=== PATIENT | female | born 1970 | race Caucasian/White ===

== ENCOUNTER 2025-03-16 16:16 | Inpatient (IN) ==
--- OUTSIDE RECORDS SUMMARY | 2025-03-16 16:24 | External Medical Summary | Summary of Care ---
Author Name Unknown Organization [facility] Address [address] [place] [address] Phone [phone] Care Team Providers Care Monorail Helper Name Role Phone Guadalupe Adams PA-C Primary Care Provider [phone] Reason for Visit * Reason Onset Date Comments Advice 03/14/2025 Encounter Details Date Type Department Care Team (Late st Contact Info) Description 03/14/2025 Telephone General Surgery, [facility] 132 [facility] [place] [address] Services, Scheduling [address] [place] [address] Advice Allergies No known active allergiesdocumented as of this encounter (statuses as of 03/14/2025) Medications ASPIRIN LOW DOSE 81 MG PO TABS 1 TABLET DAILY 1 Tab 0 3 Active ZYRTEC 10 MG PO CHEW One pill by mouth once a day for allergies 30 Tab 11 3 Active OMEGA-3 FISH OIL 1000 MG PO CAPS Take one capsule by mouth twice a day 1 Cap 0 3 Active [facility]S PROBIOTIC PO CAPS one tab a day 1 Cap 0 3 Active Esomeprazole Magnesium (NEXIUM) 40 MG CPDR Take 1 Cap by mouth daily. 180 Cap 1 9 Active Fluticasone Propionate 50 MCG/ACT Nasal Suspension (Flonase)Indicati ons:Seasonal allergies USE 2 SPRAYS IN EACH NOSTRIL DAILY 48 g 3 1 Active Vitamin C 500 MG Oral Tablet (Ascorbic Acid) Take 1 Tablet by mouth in the morning. Active Iron (Ferrous Sulfate) 325 (65 Fe) MG Oral Tablet Take 65 mg by mouth every other day. Active Clopidogrel Bisulfate 75 MG Oral Tablet (pLAVix)Indicatio ns:Hyperlipidemia with target LDL less than 70,HTN, goal below 130/80,Coronary artery disease involving [place] coronary artery of [place] heart without angina pectoris TAKE 1 TABLET IN THE MORNING 90 Tablet 3 4 Active Metoprolol Succinate ER 25 MG Oral Tablet Extended Release 24 Hour (toPROL XL)Indications:HT N, goal below 130/80 TAKE 1 TABLET IN THE MORNING 90 Tablet 3 4 Active Cyclobenzaprine HCl 10 MG Oral Tablet (Flexeril)Indicat ions:Myofascial pain syndrome of thoracic spine Take 1 Tablet by mouth at bedtime as needed for Muscle spasms. 30 Tablet 1 4 Active Triamcinolone Acetonide 0.1 % External Cream (Aristocort)Indic ations:Lichen sclerosus Apply pea sized amount topically to vaginal area once daily 80 g 3 4 Active Albuterol Sulfate HFA 108 (90 Base) MCG/ACT Inhalation Aerosol SolutionIndicatio ns:Asthma, mild Use 2 puffs every 4 hours as needed for wheezing 18 g 3 4 Active Clobetasol Propionate 0.05 % External Cream (Temovate)Indicat ions:Lichen sclerosus Apply liberally to vulva three times a week 15 g 2 4 Active Montelukast Sodium 10 MG Oral Tablet (Singulair)Indica tions:Chronic rhinitis TAKE 1 TABLET IN THE MORNING 90 Tablet 3 4 Active Arnuity Ellipta 200 MCG/ACT Inhalation Aerosol Powder Breath Activated (fluticasone Furoate)Indicatio ns:Mild persistent asthma without complication Inhale 1 Puff by mouth daily. 30 Each 5 5 Active Isosorbide Mononitrate ER 30 MG Oral Tablet Extended Release 24 Hour (Imdur) Take 1 Tablet by mouth in the morning. Active Lisinopril 10 MG Oral Tablet (Prinivil)Indicat ions:HTN, goal below 130/80 TAKE 1 TABLET IN THE MORNING 90 Tablet 1 5 Active Linzess 72 MCG Oral Capsule (linaCLOtide)Bree cations:Other constipation Take 1 Capsule by mouth daily before breakfast. 90 Capsule 1 5 Active CPAP every night at bedtime. Active Atorvastatin Calcium 80 MG Oral Tablet (Lipitor)Indicati ons:Dyslipidemia, goal LDL below 100 TAKE 1 TABLET IN THE MORNING 90 Tablet 3 5 Active documented as of this encounter (statuses as of 03/14/2025) Active Problems Problem Noted Date Diagnosed Date Iron deficiency anemia 03/19/2024 ANDRÉS on CPAP 01/23/2024 Coronary artery disease invo lving [place] coronary artery of [place] heart without angina pectoris 09/14/2022 Ectopic atrial rhythm 07/23/2022 ANDRÉS (obstructive sleep apnea) 07/23/2022 HTN, goal below 130/80 07/23/2022 History of IBS 05/19/2022 Former smoker 05/19/2022 FH myocardial infarction male first degree age k nown 05/19/2022 Hyperlipidemia with target LDL less than 70 04/22 Allergic rhinitis 07/07/2018 Hypertrophy of both inferior nasal turbinates Dyslipidemia 03/29/2018 Body mass index 37.0-37.9, adult 04/13/2016 Overview (04/13/2016): bmi= 37.49 04/13/16 H/O: hysterectomy 02/26/2014 Asthma, mild Lichen sclerosus Seasonal allergies documented as of this encounter (statuses as of 03/14/2025) Resolved Problems Problem Noted Date Diagnosed Date Resolved Date Prediabetes 01/23/2024 03/01/2024 documented as of this encounter (statuses as of 03/14/2025) Immunizations Name Administration Dates Next Due Pneumococcal Conjugate Vacci ne, 20-valent ([id number]) 01/23/2024 Pneumococcal Polysaccharide PPV23 (Pneumovax) 09/02/2015 Seasonal Influenza Vac., MDV , IM, 0.5 mL (Fluzone) 10/03/2013 Seasonal Influenza, PF, 6 M & above, IM , (FluLaval or Fluzone) 09/20/2017 Seasonal Influenza, QUAD, wi th Preserv, 6 mons & Above, 0.5 mL, IM 08/16/2019 Seasonal Influenza, Quadriva lent, No Preserve, IM 08/15/2019,08/30/2018,09/04/2016,09/02 TD - Tetanus/Diptheria (ADULT) 09/09/2010,1999 TDAP (age 10 and older)(Boostrix) 05/16/2013 documented as of this encounter Social History Tobacco Use Types Packs/Day Years Used Date Smoking Tobacco: Former Cigarettes 2007 Passive Smoke Exposure: Past Smokeless Tobacco: Never Alcohol Use Standard Drinks/Week Comments Yes 0 (1 standard drink = 0.6 oz pur e alcohol) Occ PHQ-2 Answer Date Recorded PHQ Adult Total Score 0 01/28/2023 Hunger Vital Sign Answer Date Recorded Within the past 12 months, y ou worried that your food would run out before you got the money to buy more. Never true 12/15/19 Within the past 12 months, t he food you bought just didn't last and you didn't have money to get more. Never true 12/15/2024 Childcare Answer Date Recorded Do you feel overwhelmed with taking care of a child, family member or friend? No 12/15/2024 Does your family need help f inding childcare? (Household - for ages 0-17 years) Not on file 12/15/2024 Clothing Answer Date Recorded Have you been unable to get clothing when it was really needed? No 12/15/2024 Is your family able to get c lothes or diapers when needed? (Household - for ages 0-17 years) Not on file 12/15/2024 Personal Safety Answer Date Recorded Do you feel unsafe or have concerns for your saf ety? No 12/15/2024 Do you have concerns for you r family's safety? (Household - for ages 0-17 years) Not on file 12/15/2024 Utilities Answer Date Recorded Do you have trouble paying y our heating, water, or electric bill? No 12/15/2024 Is your family able to pay t he heat, water, or electric bill? (Household - for ages 0-17 years) Not on file 12/15/2024 Does your family have access to good internet? (Household - for ages 0-17 years) Not on file 12/15/2024 Employment Status Answer Date Recorded Are you unemployed or without regular income? No 12/15/2024 Does the household have a re gular source of income? (Household - for ages 0-17 years) Not on file 12/15/2024 Social Connections Answer Date Recorded How often do you feel lonely or isolated from th ose around you? Rarely 12/15/2024 Financial Resource Strain Answer Date R ecorded Do you have any trouble payi ng for your medications, or do you think you might in the future? No 12/15/2024 Does your family have troubl e paying for medicine? (Household - for ages 0-17 years) Not on file 12/15/2024 Transportation Needs Answer Date Record ed Do you have trouble getting a ride to medical visits or work? (Adult - for ages 18 years and over) Not on file 12/15/2024 Does your family have a hard time getting a ride to doctors visits? (Household - for ages 0-17 years) Not on file 12/15/2024 Has lack of transportation k ept you from medical appointments, meetings, work, or from getting things needed for daily living? Check all that apply. No 12/15/2024 Do you (or your family) have trouble finding or paying for a ride (transportation)? (Household - for ages 0-17 years) Not on file 12/15/2024 Housing Stability Answer Date Recorded Do you currently live in a s helter or have no steady place to sleep at night? No 12/15/2024 Do you think you are at risk of becoming homeless? (Adult - for ages 18 years and over) Not on file 12/15/2024 Does your family worry about paying for your home or becoming homeless? (Household - for ages 0-17 years) Not on file 0 12/15/2024 Are you homeless or worried that you might be in the future? No 12/15/2024 Are you (or your family) mahogany eless or worried that you might be in the future? (Household - for ages 0-17 years) Not on file Food Insecurity Answer Date Recorded Do you need food for this week? No 12/15/2024 Are you able to get enough f ood for your family? (Household - for ages 0-17 years) Not on file 12/15/2024 Does your family need food t his week? (Household - for ages 0-17 years) Not on file 12/15/2024 Do you always have enough fo od for your family? (Household - for ages 0-17 years) Not on file 12/15/2024 Food Insecurity Answer Date Recorded Within the past 12 months, y ou worried that your food would run out before you got the money to buy more. Never true 12/15/19 25 Within the past 12 months, t he food you bought just didn't last and you didn't have money to get more. Never true 12/15/2024 Do you need food for this week? No 12/15/2024 Comments No Sex and Gender Information Value Date Recorded Sex Assigned at Female 07/10/2019 2:46 PM EDT Legal Sex Female 9:29 AM EST Gender Identity Female 07/10/2019 2:46 PM EDT Sexual Orientation Straight 07/10/2019 2: 46 PM EDT documented as of this encounter Miscellaneous Notes * Telephone Encounter - Manda Mitchell Ob/Or, ANDRÉS - 03/14/2025 8:06 AM EDT Becky is calling wanting to know since she finished her percocet and when she can start taking tylenol Thank you manda documented in this encounter Plan of Treatment Upcoming Encounters Date Type Department Care Team (Late st Contact Info) Description 03/18/2025 11:30 AM EDT Imaging Radiology [facility] 1st [facility] [address] [place] [phone] 04/03/2025 11:30 AM EDT Office Visit General Surgery, [facility] [address] [place] [phone] Benjamin Holman MD [address] [place] [address] 04/17/2025 2:00 PM EDT Scheduled Telephone Interventional Pain Center [facility] [address] [place] [phone] Ignacio, Nurse Phone Call Interventional Pain [facility] [address] [place] [phone] 05/09/2025 9:00 AM EDT Laboratory Laboratory, [address] [place] [address] [facility] [address] [place] [address] 05/16/2025 11:20 AM EDT Office Visit Family Practice, [address] [place] [address] Guadalupe Adams PA-C [address] [place] [address] 06/11/2025 10:20 AM EDT Office Visit [facility] [address] [place] [phone] Columba Loredo DO [address] [place] [address] 08/02/2025 1:30 PM EDT Laboratory Laboratory, [address] [place] [phone] [facility] [address] [place] [address] 08/07/2025 4:00 PM EDT Telemedicine Hematology/Oncolog y [facility] [place] [address] [place], [place] [address] Simran Estrada CRNP [address] [place] [address] [place] [id number] 01/03/2026 3:00 PM EST Office Visit Gynecology/Obstetr ics [facility] [address] [place] [phone] Keyona Cox PA-C [address] [place] [address] Scheduled Procedures Name Priority Associated Diagnoses Date/Ti me COLONOSCOPY FLEXIBLE PROXIMAL DIAGNOSTIC Recall Acid reflux Screening for colon cancer ESOPHAGOGASTRODUODENOSCOPY ( EGD), FLEXIBLE, TRANSORAL, DIAGNOSTIC Recall Acid reflux Screening for colon cancer Health Maintenance Due Date Last Done Comments Depression Screening 1980 Hepatitis B Vaccine (1 of 3 - 19+ 3-dose series) 1987 Cologuard 2013 Sigmoidoscopy 2013 Zoster Vaccines (1 of 2) 2018 DTap/Tdap Vaccines (2 - Td or Tdap) 05/16/2023 05/16/2013, 09/09/2010, 09/09/2000 COVID-19 Vaccine (1 - season) 2024 Mammogram 2025 2024, 040 03/2023, 02/19/2022, Additional history exists Influenza Vaccine (FLU shot) (Season Ended) 2025 08/16/2019, 08/15/2019, 08/30/2018, Additional history exists Albumin/Creatinine Ratio 08/02/2025 08/02/2022 Fecal Occult Blood Test 09/13/2025 09/13/2024 GFR 02/14/2026 02/14/2025, 12/23, 11/02/2024, Additional history exists Diabetes Screening 02/15/2028 02/14/2025, 0 01/17/2025, 11/02/2024, Additional history exists Colonoscopy 12/19/2029 12/19/2024, 11/22, 07/09/2019, Additional history exists Colorectal Cancer Screening 12/19/2029 Pneumococcal Vaccine: 50+ Years Completed 01/23/2024, 09/02/2015 RETIRED - COLONOSCOPY-EVERY 5 YRS AGES 18-100 Discontinued 12/19/2024, 12/19/2024, 07/09/2019, Additional history exists HPV (Gardasil) Vaccine Aged Out No lo nger eligible based on patient's age to complete this topic MENINGOCOCCAL (MENACTRA/MENVEO) Aged Out No longer eligible based on patient's age to complete this topic Meningitis B Vaccine (Bexsero/Trumemba) Aged Out No longer eligible based on patient's age to complete this topic documented as of this encounter Medical Devices Not on filedocumented as of this encounter Care Teams Monorail Helper Relationship Specialty Start Date End Date Guadalupe Adams PA-C [facility] [address] PCP - General Physician Elevator Inspector 07/30/22 documented as of this encounter
--- OUTSIDE RECORDS SUMMARY | 2025-03-16 16:24 | External Medical Summary | Summary of Care ---
Author Name Unknown Organization [facility] Address [address] [place] [address] Phone [phone] Care Team Providers Care Sales Marketing Director Name Role Phone Guadalupe Adams PA-C Primary Care Provider [phone] Reason for Visit * Reason Onset Date Comments Advice 03/14/2025 Encounter Details Date Type Department Care Team (Late st Contact Info) Description 03/14/2025 Telephone General Surgery, [facility] 132 [facility] [place] [address] Services, Scheduling [address] [place] [address] Advice Allergies No known active allergiesdocumented as [...] 70,HTN, goal below 130/80,Coronary artery disease involving [place] coronary artery of [place] heart without angina pectoris TAKE 1 TABLET [...] CPAP 01/23/2024 Coronary artery disease invo lving [place] coronary artery of [place] heart without angina pectoris 09/14/2022 Ectopic atrial [...] Next Due Pneumococcal Conjugate Vacci ne, 20-valent ([id number]) 01/23/2024 Pneumococcal Polysaccharide PPV23 (Pneumovax) 09/02/2015 Seasonal [...] Description 03/18/2025 11:30 AM EDT Imaging Radiology [facility]st [facility] [address] [place] [phone] 04/03/2025 11:30 AM EDT Office Visit General Surgery, [facility] [address] [place] [phone] Benjamin Holman MD [address] [place] [address] 04/17/2025 2:00 PM EDT Scheduled Telephone Interventional Pain Center [facility] [address] [place] [phone] Ignacio, Nurse Phone Call Interventional Pain [facility] [address] [place] [phone] 05/09/2025 9:00 AM EDT Laboratory Laboratory, [address] [place] [address] [facility] [address] [place] [address] 05/16/2025 11:20 AM EDT Office Visit Family Practice, [address] [place] [address] Guadalupe Adams PA-C [address] [place] [address] 06/11/2025 10:20 AM EDT Office Visit [facility] [address] [place] [address] Columba Loredo DO [address] [place] [address] 08/02/2025 1:30 PM EDT Laboratory Laboratory, [address] [place] [phone] [facility] [address] [place] [address] 08/07/2025 4:00 PM EDT Telemedicine Hematology/Oncolog y [facility] [place] [address] [place], [place] [address] Simran Estrada CRNP [address] [place] [address] [place] [id number] 01/03/2026 3:00 PM EST Office Visit Gynecology/Obstetr ics [facility] [address] [place] [phone] Keyona Cox PA-C [address] [place] [address] Scheduled Procedures Name Priority Associated Diagnoses Date/Ti [...] filedocumented as of this encounter Care Teams Sales Marketing Director Relationship Specialty Start Date End Date Guadalupe Adams PA-C [address] [facility] [address] PCP - General Physician Security Tester 07/30/22 documented as of this encounter
--- OUTSIDE RECORDS SUMMARY | 2025-03-16 16:24 | External Medical Summary | Summary of Care ---
Author Name Unknown Organization [facility] Address [address] [place] [address] Phone [phone] Care Team Providers Care Log Preparer Name Role Phone Guadalupe Adams PA-C Primary Care Provider [phone] Reason for Visit * Reason Onset Date Comments Advice 03/14/2025 Encounter Details Date Type Department Care Team (Late st Contact Info) Description 03/14/2025 Telephone General Surgery, [facility] 132 [facility] [place] [address] Services, Scheduling [address] [place] [address] Advice Allergies No known active allergiesdocumented as [...] 70,HTN, goal below 130/80,Coronary artery disease involving [place] coronary artery of [place] heart without angina pectoris TAKE 1 TABLET [...] CPAP 01/23/2024 Coronary artery disease invo lving [place] coronary artery of [place] heart without angina pectoris 09/14/2022 Ectopic atrial [...] Next Due Pneumococcal Conjugate Vacci ne, 20-valent ([id number]) 01/23/2024 Pneumococcal Polysaccharide PPV23 (Pneumovax) 09/02/2015 Seasonal [...] Description 03/18/2025 11:30 AM EDT Imaging Radiology [facility] 1st [facility] [address] [place] [address] [phone] 04/03/2025 11:30 AM EDT Office Visit General Surgery, [facility] [address] [place] [phone] Benjamin Holman MD [address] [place] [address] 04/17/2025 2:00 PM EDT Scheduled Telephone Interventional Pain Center [facility] [address] [place] [phone] Ignacio, Nurse Phone Call Interventional Pain [facility] [address] [place] [phone] 05/09/2025 9:00 AM EDT Laboratory Laboratory, [address] [place] [address] [facility] [address] [place] [address] 05/16/2025 11:20 AM EDT Office Visit Family Practice, [address] [place] [address] Guadalupe Adams PA-C [address] [place] [address] 06/11/2025 10:20 AM EDT [facility] [address] [place] [address] Columba Loredo DO [address] [place] [address] 08/02/2025 1:30 PM EDT Laboratory Laboratory, [address] [place] [phone] [facility] [address] [place] [address] 08/07/2025 4:00 PM EDT Telemedicine Hematology/Oncolog y [facility] [place] [address] [place], [place] [address] Simran Estrada CRNP [address] [place] [address] [place] [id number] 01/03/2026 3:00 PM EST Office Visit Gynecology/Obstetr ics [facility] [address] [place] [phone] Keyona Cox PA-C [address] [place] [address] Scheduled Procedures Name Priority Associated Diagnoses Date/Ti [...] filedocumented as of this encounter Care Teams Log Preparer Relationship Specialty Start Date End Date Guadalupe Adams PA-C [address] [facility] [address] PCP - General Physician Subgrade Roller Operator 07/30/22 documented as of this encounter
--- OUTSIDE RECORDS SUMMARY | 2025-03-16 16:24 | External Medical Summary | Summary of Care ---
Author Name Unknown Organization [facility] Address [address] [place] [address] Phone [phone] Care Team Providers Care Damage Prevention Coordinator Name Role Phone Guadalupe Adams PA-C Primary Care Provider [phone] Reason for Visit * Reason Onset Date Comments Advice 03/14/2025 Encounter Details Date Type Department Care Team (Late st Contact Info) Description 03/14/2025 Telephone General Surgery, [facility] 132 [facility] [place] [address] Services, Scheduling [address] [place] [address] Advice Allergies No known active allergiesdocumented as [...] 70,HTN, goal below 130/80,Coronary artery disease involving [place] coronary artery of [place] heart without angina pectoris TAKE 1 TABLET [...] CPAP 01/23/2024 Coronary artery disease invo lving [place] coronary artery of [place] heart without angina pectoris 09/14/2022 Ectopic atrial [...] Next Due Pneumococcal Conjugate Vacci ne, 20-valent ([id number]) 01/23/2024 Pneumococcal Polysaccharide PPV23 (Pneumovax) 09/02/2015 Seasonal [...] 11:30 AM EDT Imaging Radiology [facility] [address] [place] [phone] 04/03/2025 11:30 AM EDT Office Visit General Surgery, [facility] [address] [place] [address] Benjamin Holman MD [address] [place] [address] 04/17/2025 2:00 PM EDT Scheduled Telephone Interventional Pain Center [facility] [address] [place] [phone] Ignacio, Nurse Phone Call Interventional Pain [facility] [address] [place] [address] [phone] 05/09/2025 9:00 AM EDT Laboratory Laboratory, [address] [place] [address] [facility] [address] [place] [address] 05/16/2025 11:20 AM EDT Office Visit Family Practice, [address] [place] [address] Guadalupe Adams PA-C [address] [place] [address] 06/11/2025 10:20 AM EDT [facility] [address] [place] [address] Columba Loredo DO [address] [place] [address] 08/02/2025 1:30 PM EDT Laboratory Laboratory, [address] [place] [phone] [facility] [address] [place] [address] 08/07/2025 4:00 PM EDT Telemedicine Hematology/Oncolog y [facility] [place] [address] [place], [place] [address] Simran Estrada CRNP [address] [place] [address] [place] [phone] 01/03/2026 3:00 PM EST Office Visit Gynecology/Obstetr ics [facility] [address] [place] [phone] Keyona Cox PA-C [address] [place] [address] Scheduled Procedures Name Priority Associated Diagnoses Date/Ti [...] filedocumented as of this encounter Care Teams Damage Prevention Coordinator Relationship Specialty Start Date End Date Guadalupe Adams PA-C [facility] [address] PCP - General Physician Motel Front Desk Attendant 07/30/22 documented as of this encounter
--- OUTSIDE RECORDS SUMMARY | 2025-03-16 16:25 | External Medical Summary | Summary of Care ---
Author Name Unknown Organization [facility] Address [address] [place] [address] Phone [phone] Care Team Providers Care Absorption Plant Operator Name Role Phone Guadalupe Adams PA-C Primary Care Provider [phone] [phone] Reason for Visit * Reason Onset Date Comments Medication Question 03/12/2025 Encounter Details Date Type Department Care Team (Late st Contact Info) Description 03/12/2025 Telephone General Surgery, [facility] [address] [facility] [place] [address] Services, Scheduling [address] [place] [address] Medication Question Allergies No known active allergiesdocumented as of this encounter (statuses as of 03/12/2025) Medications ASPIRIN LOW DOSE 81 MG PO [...] 70,HTN, goal below 130/80,Coronary artery disease involving [place] coronary artery of [place] heart without angina pectoris TAKE 1 TABLET [...] as of this encounter (statuses as of 03/12/2025) Active Problems Problem Noted Date Diagnosed Date Iron deficiency anemia 03/19/2024 ANDRÉS on CPAP 01/23/2024 Coronary artery disease invo lving [place] coronary artery of [place] heart without angina pectoris 09/14/2022 Ectopic atrial [...] as of this encounter (statuses as of 03/12/2025) Resolved Problems Problem Noted Date Diagnosed Date Resolved Date Prediabetes 01/23/2024 03/01/2024 documented as of this encounter (statuses as of 03/12/2025) Immunizations Name Administration Dates Next Due Pneumococcal Conjugate Vacci ne, 20-valent ([id number]) 01/23/2024 Pneumococcal Polysaccharide PPV23 (Pneumovax) 09/02/2015 Seasonal [...] Years Used Date Smoking Tobacco: Former Cigarettes 1 2007 Passive Smoke Exposure: Past Smokeless Tobacco: [...] encounter Miscellaneous Notes * Telephone Encounter - Lenka Allen OSA - 03/12/2025 9:15 AM EDT Patient aware of Dr Holman's response on the meds she is to be taken. * Telephone Encounter - Angeles Parsons LPN - 03/12/2025 8:53 AM EDT I can't even see where either of these were ordered. Can you answer this question. * Telephone Encounter - Manda Mitchell - Freida Ob/OrANDRÉS - 03/12/2025 7:59 AM EDT Becky is calling about percocet discharge paper say every 4 hr and and bottle read every 6 hrs And ibuprofen 600 mg can she take it since she is not on her plavix Please call her back Thank you manda documented in this encounter Plan of Treatment Upcoming Encounters Date Type Department Care Team (Late st Contact Info) Description 03/18/2025 11:30 AM EDT Imaging Radiology [facility] 1st Floor, [place] [address] [place] [address] 04/03/2025 11:30 AM EDT Office Visit General Surgery, [facility] [address] [place] [phone] Benjamin Holman MD [address] [place] [address] 04/17/2025 2:00 PM EDT Scheduled Telephone Interventional Pain Center [facility] [address] [place] [phone] Ignacio Nurse Phone Call Interventional Pain [facility] [address] [place] [address] 05/09/2025 9:00 AM EDT Laboratory Laboratory, [place] [address] [place] [phone] Marjorie Gan [address] [address] 05/16/2025 11:20 AM EDT [facility] [address] [place] [phone] Guadalupe Adams PA-C [address] [place] [address] 06/11/2025 10:20 AM EDT Office Visit Sleep Disorders Ctr [facility] [address] [place] [phone] Columba Loredo DO [address] [place] [address] 08/02/2025 1:30 PM EDT Laboratory Laboratory, Malik Dick [address] [place] [phone] [place], Laboratory [address] [place] [address] 08/07/2025 4:00 PM EDT Telemedicine Hematology/Oncolog y [facility] [place] [address] [place] [address] Simran Estrada CRNP [address] [place] [address] 01/03/2026 3:00 PM EST Office Visit Gynecology/Obstetr ics [facility] [address] [facility] [place] [address] Keyona Cox PA-C [address] [place] [address] Scheduled Procedures Name Priority Associated Diagnoses Date/Ti [...] (1 - season) 2024 Mammogram 2025 2024, 03/2023, 02/19/2022, Additional history exists Influenza Vaccine [...] filedocumented as of this encounter Care Teams Absorption Plant Operator Relationship Specialty Start Date End Date Guadalupe Adams PA-C [address] [place] [address] PCP - General Physician Jewelry Manager 07/30/22 documented as of this encounter
--- OUTSIDE RECORDS SUMMARY | 2025-03-16 16:25 | External Medical Summary | Summary of Care ---
Author Name Unknown Organization [facility] Address [address] [place] [address] Phone [phone] Care Team Providers Care Pile Operator Name Role Phone Guadalupe Adams PA-C Primary Care Provider [phone] [phone] Reason for Visit * Reason Onset Date Comments Medication Question 03/12/2025 Encounter Details Date Type Department Care Team (Late st Contact Info) Description 03/12/2025 Telephone General Surgery, [facility] [address] [place] [address] Services, Scheduling [address] [place] [address] Medication Question Allergies No known active allergiesdocumented [...] 70,HTN, goal below 130/80,Coronary artery disease involving [place] coronary artery of [place] heart without angina pectoris TAKE 1 TABLET [...] CPAP 01/23/2024 Coronary artery disease invo lving [place] coronary artery of [place] heart without angina pectoris 09/14/2022 Ectopic atrial [...] Next Due Pneumococcal Conjugate Vacci ne, 20-valent ([id number]) 01/23/2024 Pneumococcal Polysaccharide PPV23 (Pneumovax) 09/02/2015 Seasonal [...] Description 03/18/2025 11:30 AM EDT Imaging Radiology [facility] 1st Floor, [place] [address] [place] [address] 04/03/2025 11:30 AM EDT Office Visit General Surgery, [facility] [address] [place] [phone] Benjamin Holman MD [address] [place] [address] 04/17/2025 2:00 PM EDT Scheduled Telephone Interventional Pain Center [facility] [address] [place] [phone] Ignacio Nurse Phone Call Interventional Pain [facility] [address] [place] [phone] 05/09/2025 9:00 AM EDT Laboratory Laboratory, Malik [address] [phone] Marjorie Gan [address] [place] [address] 05/16/2025 11:20 AM EDT [facility] [address] [place] [phone] Guadalupe Adams PA-C [address] [place] [address] 06/11/2025 10:20 AM EDT Office Visit Sleep Disorders Ctr [facility] [address] [place] [phone] Columba Loredo DO [address] [place] [address] 08/02/2025 1:30 PM EDT Laboratory Laboratory, Malik Dick [address] [place] [phone] [place], Laboratory [address] [place] [address] 08/07/2025 4:00 PM EDT Telemedicine Hematology/Oncolog y [facility] [place] [address] [place] [phone] Simran Estrada CRNP [address] [place] [address] 01/03/2026 3:00 PM EST Office Visit Gynecology/Obstetr ics [facility] [address] [facility] [place] [address] Keyona Cox PA-C [address] [place] [address] Scheduled Procedures Name Priority Associated Diagnoses Date/Ti [...] filedocumented as of this encounter Care Teams Pile Operator Relationship Specialty Start Date End Date Guadalupe Adams PA-C [address] [place] [address] PCP - General Physician Drug Coordinator 07/30/22 documented as of this encounter
--- OUTSIDE RECORDS SUMMARY | 2025-03-16 16:25 | External Medical Summary | Summary of Care ---
Author Name Unknown Organization [facility] Address [address] [place] [address] Phone [phone] Care Team Providers Care Loan Specialist Name Role Phone Guadalupe Adams PA-C Primary Care Provider [phone] Reason for Visit * Reason Onset Date Comments Medication Question 03/12/2025 Encounter Details Date Type Department Care Team (Late st Contact Info) Description 03/12/2025 Telephone General Surgery, [facility] [address] [place] [address] Services, Scheduling [address] [place] [address] Medication Question Allergies No known active allergiesdocumented [...] 70,HTN, goal below 130/80,Coronary artery disease involving [place] coronary artery of [place] heart without angina pectoris TAKE 1 TABLET [...] CPAP 01/23/2024 Coronary artery disease invo lving [place] coronary artery of [place] heart without angina pectoris 09/14/2022 Ectopic atrial [...] Next Due Pneumococcal Conjugate Vacci ne, 20-valent ([id number]) 01/23/2024 Pneumococcal Polysaccharide PPV23 (Pneumovax) 09/02/2015 Seasonal [...] Description 03/18/2025 11:30 AM EDT Imaging Radiology [facility] 1st Floor, [place] [address] [place] [address] 04/03/2025 11:30 AM EDT Office Visit General Surgery, [facility] [address] [place] [phone] Benjamin Holman MD [address] [place] [address] 04/17/2025 2:00 PM EDT Scheduled Telephone Interventional Pain Center [facility] [address] [place] [phone] Ignacio Nurse Phone Call Interventional Pain [facility] [address] [place] [address] 05/09/2025 9:00 AM EDT Laboratory Laboratory, Malik Dick [address] [place] [phone] Marjorie Gan [address] [place] [address] 05/16/2025 11:20 AM EDT [facility] [address] [place] [place] [phone] Guadalupe Adams PA-C [address] [place] [address] 06/11/2025 10:20 AM EDT Office Visit Sleep Disorders Ctr [facility] [address] [place] [phone] Columba Loredo DO [address] [place] [address] 08/02/2025 1:30 PM EDT Laboratory Laboratory, Malik Dick [address] [place] [phone] [place], Laboratory [address] [place] [address] 08/07/2025 4:00 PM EDT Telemedicine Hematology/Oncolog y [facility] [place] [address] [place] [phone] Simran Estrada CRNP [address] [place] [address] 01/03/2026 3:00 PM EST Office Visit Gynecology/Obstetr ics [facility] [address] [facility] [place] [address] Keyona Cox PA-C [address] [place] [address] Scheduled Procedures Name Priority Associated Diagnoses Date/Ti [...] filedocumented as of this encounter Care Teams Loan Specialist Relationship Specialty Start Date End Date Guadalupe Adams PA-C [address] [address] PCP - General Physician Door Hanger 07/30/22 documented as of this encounter
--- OUTSIDE RECORDS SUMMARY | 2025-03-16 16:25 | External Medical Summary | Summary of Care ---
Author Name Unknown Organization [facility] Address [address] [place] [address] Phone [phone] Care Team Providers Care Manager Speech Name Role Phone Guadalupe Adams PA-C Primary Care Provider [phone] Reason for Visit * Reason Onset Date Comments Medication Question 03/12/2025 Encounter Details Date Type Department Care Team (Late st Contact Info) Description 03/12/2025 Telephone General Surgery, [facility] [address] [facility] [place] [address] Services, Scheduling [address] [place] [address] Medication Question Allergies No known active allergiesdocumented [...] 70,HTN, goal below 130/80,Coronary artery disease involving [place] coronary artery of [place] heart without angina pectoris TAKE 1 TABLET [...] CPAP 01/23/2024 Coronary artery disease invo lving [place] coronary artery of [place] heart without angina pectoris 09/14/2022 Ectopic atrial [...] Next Due Pneumococcal Conjugate Vacci ne, 20-valent ([id number]) 01/23/2024 Pneumococcal Polysaccharide PPV23 (Pneumovax) 09/02/2015 Seasonal [...] Description 03/18/2025 11:30 AM EDT Imaging Radiology [facility] 1st Floor, [place] [address] [place] [address] 04/03/2025 11:30 AM EDT Office Visit General Surgery, [facility] [address] [place] [phone] Benjamin Holman MD [address] [place] [address] 04/17/2025 2:00 PM EDT Scheduled Telephone Interventional Pain Center [facility] [address] [place] [phone] Ignacio Nurse Phone Call Interventional Pain [facility] [address] [place] [phone] 05/09/2025 9:00 AM EDT Laboratory Laboratory, Malik Dick [address] [phone] Marjorie Gan [address] [place] [address] 05/16/2025 11:20 AM EDT [facility] [address] [phone] Guadalupe Adams PA-C [address] [place] [address] 06/11/2025 10:20 AM EDT Office Visit Sleep Disorders Ctr [facility] [address] [place] [phone] Columba Loredo DO [address] [place] [address] 08/02/2025 1:30 PM EDT Laboratory Laboratory, Malik Dick [address] [place] [phone] [place], Laboratory [address] [place] [address] 08/07/2025 4:00 PM EDT Telemedicine Hematology/Oncolog y [facility] [place] [address] [place] [phone] Simran Estrada CRNP [address] [place] [place] [address] 01/03/2026 3:00 PM EST Office Visit Gynecology/Obstetr ics [facility] [address] [facility] [place] [address] Keyona Cox PA-C [address] [place] [address] Scheduled Procedures Name Priority Associated Diagnoses Date/Ti [...] filedocumented as of this encounter Care Teams Manager Speech Relationship Specialty Start Date End Date Guadalupe Adams PA-C [address] [place] [address] PCP - General Physician Abrasive Sawyer 07/30/22 documented as of this encounter
--- OUTSIDE RECORDS SUMMARY | 2025-03-16 16:25 | External Medical Summary | Summary of Care ---
Author Name Unknown Organization [facility] Address [address] [place] [address] Phone [phone] Care Team Providers Care Science Manager Name Role Phone Guadalupe Adams PA-C Primary Care Provider [phone] Reason for Visit * Reason Onset Date Comments Medication Question 03/12/2025 Encounter Details Date Type Department Care Team (Late st Contact Info) Description 03/12/2025 Telephone General Surgery, [facility] [address] [facility] [place] [address] Services, Scheduling [address] [place] [address] Medication Question Allergies No known active allergiesdocumented [...] 70,HTN, goal below 130/80,Coronary artery disease involving [place] coronary artery of [place] heart without angina pectoris TAKE 1 TABLET [...] CPAP 01/23/2024 Coronary artery disease invo lving [place] coronary artery of [place] heart without angina pectoris 09/14/2022 Ectopic atrial [...] Next Due Pneumococcal Conjugate Vacci ne, 20-valent ([id number]) 01/23/2024 Pneumococcal Polysaccharide PPV23 (Pneumovax) 09/02/2015 Seasonal [...] Encounter - Manda Mitchell Ob/Or, ANDRÉS - 03/12/2025 7:59 AM EDT Becky is [...] [facility] 1st Floor, [place] [address] [address] 04/03/2025 11:30 AM EDT Office Visit General Surgery, [facility] [address] [phone] Benjamin Holman MD [address] [place] [address] 04/17/2025 2:00 PM EDT Scheduled Telephone Interventional Pain Center [facility] [address] [phone] [place], Nurse Phone Call Interventional Pain [facility] [address] [place] [phone] 05/09/2025 9:00 AM EDT Laboratory Laboratory, [address] [place] [phone] [facility] Laboratory [address] [place] [address] 05/16/2025 11:20 AM EDT Office Visit [facility], [facility] [address] [place] [phone] Guadalupe Adams PA-C [address] [place] [address] 06/11/2025 10:20 AM EDT Office Visit Sleep Disorders Ctr [place] [address] [place] [phone] Columba Loredo DO [address] [place] [address] 08/02/2025 1:30 PM EDT Laboratory Laboratory, [address] [place] [phone] Malik Laboratory [address] [place] [address] 08/07/2025 4:00 PM EDT Telemedicine Hematology/Oncolog y [facility] [place] [address] [facility] [phone] Simran Estrada CRNP [address] [place] [address] 01/03/2026 3:00 PM EST Office Visit Gynecology/Obstetr ics [facility] [place] [address] [place] [address] Keyona Cox PA-C [address] [place] [address] Scheduled Procedures Name Priority Associated Diagnoses Date/Ti [...] Tdap) 05/16/2023 05/16/2013, 09/09/2010, 09/09/2000 COVID-19 Vaccine ( - season) 2024 Mammogram 2025 2024, 040 [...] filedocumented as of this encounter Care Teams Science Manager Relationship Specialty Start Date End Date Guadalupe Adams PA-C [address] [facility] [place] [address] PCP - General Physician Pattern Shop Supervisor 07/30/22 documented as of this encounter
--- NOTE | 2025-03-16 16:31 | Emergency Department Note ---
History of Present Illness General Chief Complaint: Chest Pain Stated Complaint: CHEST PAIN, NAUSEA, FREQUENT BOWEL MOVEMENTS Time Seen by Provider: 03/16/25 16:22 History of Present Illness Provider Complaint: chest pain Onset (ago): day(s) 2 Duration: intermittent Onset: during rest Pain Location: substernal and left chest Severity: moderate Quality: + aching and + heaviness Relieved By: + nothing Exacerbated By: + inspiration Context: + recent surgery (Hernia repair surgery on Tuesday); no recent illness, no recent travel or no trauma/injury Associated symptoms: + dyspnea; no nausea, no vomiting, no syncope, no palpitations, no fever or no cough Home Medications Medication Instructions Recorded Confirmed Type LACTOBACILLUS (PROBIOTIC) 1 tab PO QAM ##0 08/02/14 03/16/25 History albuterol sulfate 90 mcg/actuation 2 puff inhalation Q4H PRN Wheezing 08/30/22 03/16/25 History aerosol inhaler lisinopril 10 mg tablet 10 mg PO QAM 08/30/22 03/16/25 History montelukast 10 mg tablet 10 mg PO QAM 08/30/22 03/16/25 History (Singulair) cetirizine 10 mg tablet (Zyrtec) 10 mg PO QAM 11/08/24 03/16/25 History cyclobenzaprine 10 mg tablet 10 mg PO HS PRN muscle spasms 11/08/24 03/16/25 History ferrous sulfate 325 mg (65 mg 325 mg PO UD 11/08/24 03/16/25 History iron) tablet metoprolol succinate 25 mg 25 mg PO QAM 11/08/24 03/16/25 History tablet,extended release 24 hr ascorbic acid (vitamin C) 1,000 mg 1 g PO QAM 02/20/25 03/16/25 History tablet (Vitamin C) aspirin 81 mg capsule 81 mg PO QAM 02/20/25 03/16/25 History atorvastatin 80 mg tablet 80 mg PO QAM 02/20/25 03/16/25 History clopidogrel 75 mg tablet 75 mg PO QAM 02/20/25 03/16/25 History esomeprazole magnesium 40 mg 40 mg PO QAM 02/20/25 03/16/25 History capsule,delayed release (Nexium) fluticasone furoate 200 1 inh inhalation QAM 02/20/25 03/16/25 History mcg/actuation blister powder for inhalation (Arnuity Ellipta) fluticasone propionate 50 1 spray intranasal HS 02/20/25 03/16/25 History mcg/actuation nasal spray,suspension isosorbide mononitrate 30 mg 30 mg PO QAM 02/20/25 03/16/25 History tablet,extended release 24 hr linaclotide 72 mcg capsule 144 mcg PO QAM 02/20/25 03/16/25 History (Linzess) oxycodone-acetaminophen 5 mg-325 1 tab PO Q6H PRN pain #14 tabs 03/11/25 03/16/25 Rx mg tablet (Percocet) polyethylene glycol 3350 17 gram 17 g PO DAILY 03/11/25 03/16/25 History oral powder packet (Miralax) omega-3 fatty acids 1,000 mg 2,000 mg PO QAM 03/16/25 03/16/25 History capsule triamcinolone acetonide 0.1 % 1 applic topical DAILY 03/16/25 03/16/25 History topical cream Allergies Allergy/AdvReac Type Severity Reaction Status Date / Time No Known Allergies Allergy Verified 03/11/25 05:39 Past Med/Surg History Problem List (Updated 03/16/25 @ 18:43 by Jluián Tovar MD) Chest pain (Acute) SBO (small bowel obstruction) (Acute) Incisional hernia Encounter for pre-operative examination CAD (coronary artery disease) Medical History History of Lopez's esophagus Hx of irritable bowel syndrome Hx of gastroesophageal reflux (GERD) Hx of coronary artery disease 08/2022- stent 10/2024- no stents Follows with [facility] cardio Sleep apnea CPAP (compliant) History of asthma Hx of hyperlipidemia History of hypertension Surgical History History of esophagogastroduodenoscopy (EGD) Hx of colonoscopy 11/2024 Hx of total hysterectomy + removal b/l fallopian tubes and unilateral oophorectomy Hx of unilateral oophorectomy (2000) History of laparoscopic appendectomy (2000) Hx of tonsillectomy Hx of heart artery stent 08/2022 Hx of cardiac cath 08/2022- stent 10/2024- no stents Social History Smoking Status: Former smoker Second Hand Exposure: Yes (hx as child); Do You Dip or Chew Tobacco: No; Hx Alcohol Use: Yes Alcohol type: beer Hx Substance Use: No Preferred Language: Greenlandic Communication Ability: Effective Medical Staff Assistant Required: No Beliefs That Will Affect Care: None Current Living Situation: Spouse Feels Safe at Home: Yes Assistive Devices: CPAP and Glasses Physical Exam Vital Signs Vital Signs - 24 hr 03/16/25 16:18 03/16/25 16:40 03/16/25 17:28 Temperature 36.4 C L Temperature Source Temporal Artery Scan Pulse Rate 127 H 96 H Pulse Rate from SpO2 Sensor Respiratory Rate 19 Respiratory Effort / Characteristics Non-Labored Spontaneous Respiratory Depth Normal Blood Pressure 146/100 H Blood Pressure Mean 115 Pulse Oximetry 93 Oxygen Delivery Method Room Air Room Air Sepsis Recent Fever Within 48 Hours No Sepsis New/Unexplained Change in Mental Status No Sepsis Action Taken by Nursing No Action Required 03/16/25 18:00 03/16/25 18:01 03/16/25 18:06 Temperature Temperature Source Pulse Rate 90 94 H Pulse Rate from SpO2 Sensor 85 Respiratory Rate 17 18 Respiratory Effort / Characteristics Respiratory Depth Blood Pressure 147/102 H Blood Pressure Mean 113 Pulse Oximetry 91 93 Oxygen Delivery Method Room Air Sepsis Recent Fever Within 48 Hours Sepsis New/Unexplained Change in Mental Status Sepsis Action Taken by Nursing Physical Exam HENT: Exam performed. - Head: Normocephalic and atraumatic. EYES: Conjunctivae and EOM are normal. Right eye exhibits no discharge. Left eye exhibits no discharge. No scleral icterus. NECK: Normal range of motion. Neck supple. No JVD present. CV: Tachycardic rate, regular rhythm, normal heart sounds and intact distal pulses. There is no peripheral edema. Palpable radial pulses bue. PULM/CHEST: Effort normal and breath sounds normal. No respiratory distress. No stridor. no wheezes. no rales. ABD: Abdominal binder in place. When abdominal binder was removed there is a rash that is macular over the area where the binder was. Most likely from irritation from the binder. No papules. Nikolsky negative. No fluctuant areas. No tenderness. No surrounding erythema. Surgical incisions look clean and dry with no bleeding or purulent drainage from the incisions. NEURO: Motor and sensation grossly intact. Course Course 162: The patient was evaluated in room . A complete history and physical exam was performed Cardiac monitoring: An order was placed for continuous cardiac monitoring. The monitor shows a rate of 120 with sinus tachycardia rhythm interpreted by me 1750: Patient vomited per nursing. Zofran ordered for the patient. 1823: Vital signs stable. Labs are unremarkable. CT of the chest negative for PE. CT abdomen pelvis shows small bowel obstruction with the point of transition at the ileocecal junction with no signs of bowel ischemia. There is small ventral/epigastric hernia with fat and fluid as well as a lower anterior abdominal wall probable seroma measuring 6 x 2 cm. Discussed case with general surgery on-call Dr. Tee. He states that if the patient vomits again to place an NG otherwise we can hold off for now. He recommends admission to medicine and states the surgical team will be on consult to have his [employer] evaluate the patient later tonight. Administered Medications Sodium Chloride (Nss) 1,000 mls @ 125 mls/hr IV .Q8H [facility] Stop: 03/17/25 17:59 Last Admin: 03/16/25 17:58 Dose: 125 mls/hr Documented By: CEF Discontinued Medications Ioversol (Optiray 320 125ml) 119 ml IV ONCE ONE Stop: 03/16/25 16:47 Last Admin: 03/16/25 16:47 Dose: 119 ml Documented By: ANTHONY Ondansetron HCl (Ondansetron Inj 2 Mg/Ml 2 Ml Vial) 4 mg IV NOW STA Stop: 03/16/25 17:48 Last Admin: 03/16/25 17:49 Dose: 4 mg Documented By: CEF Medical Decision Making Laboratory Data Attestation: I reviewed the patient's lab results. 03/16/25 16:31 03/16/25 16:31 Labs: Lab Results 03/16/25 03/16/25 Range/Units 16:31 16:35 WBC 11.65 H (4.8-10.8) K/ul RBC 4.98 (4.20-5.40) M/uL Hgb 15.4 (12.0-16.0) g/dl POC Hgb 16.3 H (12.0-16.0) g/dl Hct 45.7 (37.0-47.0) % POC Hct 48 H (37-47) % MCV 91.8 (80.0-100.0) fL MCH 30.9 (25.0-34.0) pg MCHC 33.7 (32.0-36.0) g/dL RDW Std Deviation 43.8 (36.4-46.3) fL RDW Coeff of Zoe 13.1 (11.5-14.5) % Plt Count 331 (130-400) K/uL MPV 10.4 (9.4-12.4) fL Immature Gran % (Auto) 0.3 % Neut % (Auto) 80.1 % Lymph % (Auto) 11.6 % [place] % (Auto) 5.2 % Eos % (Auto) 2.3 % Baso % (Auto) 0.5 % Neut # (Auto) 9.33 H (1.40-6.50) K/uL Lymph # (Auto) 1.35 (1.20-3.40) K/uL [place] # (Auto) 0.61 H (0.11-0.59) K/uL Eos # (Auto) 0.27 (0.00-0.50) K/uL Baso # (Auto) 0.06 (0.00-0.20) K/uL Immature Gran # (Auto) 0.03 (0.01-0.20) K/uL PT 10.9 (9.0-12.0) Seconds INR 1.0 (0.9-1.1) APTT 26 (21-31) Seconds PTT Ratio 1.0 POC Sodium 139 (135-144) mmol/L Sodium 140 (136-145) mmol/L POC Potassium 3.9 (3.3-5.0) mmol/L Potassium 3.9 (3.5-5.1) mmol/L POC Chloride 97 L (101-112) mmol/L Chloride 99 (98-107) mmol/L Carbon Dioxide 34 H (21-32) mmol/L POC Total CO2 29 (24-31) mmol/L Anion Gap 7 (3-11) POC Anion Gap 18.0 (16-25) mmol/L POC BUN 18 (7-18) mg/dl BUN 18 (6-23) mg/dl Creatinine 0.80 (0.6-1.2) mg/dl POC Creatinine 0.8 (0.6-1.3) mg/dl Est Cr Clr Drug Dosing 76.2 ml/min eGFR 85.89 BUN/Creatinine Ratio 22.5 H (10-20) Glucose 133 H (70-99(Fasting)) mg/dl POC Glucose (other) 132 H (70-99) mg/dl Calcium 9.7 (8.6-10.3) mg/dl POC Ioniz Calcium [place] 1.16 (1.12-1.32) mmol/l Troponin I High Sens 11.6 (0-14) pg/ml Lipase 12 (11-82) U/L Imaging Data Chest x-ray: Attestation: I personally reviewed and interpreted this imaging study as follows: My impression: Chest x-ray negative. Airway clear. No pneumothorax. No consolidation. No cardiomegaly or cephalization.. No free air under the diaphragm. No fractures of the skeletal structures. CT scan - abdomen: Radiologist's impression: EXAM: CT abd pelvis IV con only CLINICAL HISTORY: abd pain TECHNIQUE: CT of the abdomen and pelvis was performed with 119ml optiray 320 intravenous contrast, with the following protocol: axial images with, and reconstructed coronal and sagittal images. One of the following dose reduction techniques was utilized for this exam: Automated exposure control, adjustment of the mA and/or kV according to patient size, and use of iterative reconstruction. COMPARISON: No prior studies available for comparison." FINDINGS: Abdomen: Liver: Normal in size, shape, and has homogenous low attenuation denoting fatty infiltration. No focal lesions, cysts, or masses were identified. Hepatic vasculature and biliary ducts are unremarkable. Gallbladder and Biliary System: The gallbladder is normal in size and shape. No wall thickening, pericholecystic fluid, or gallstones were identified. The common bile duct is normal in caliber without dilation. Pancreas: Pancreatic head, body, and tail are visualized and appear normal in size and density. No pancreatic masses or calcifications were noted. The pancreatic duct is not dilated. Spleen: Normal in size, shape, and density. No splenic lesions or masses were identified. Kidneys and Adrenal Glands: Both kidneys are normal in size, shape, and position. Cortical thickness is within normal limits. No renal calculi or hydronephrosis. Adrenal glands are unremarkable with no evidence of masses or hyperplasia. Pelvis: Urinary Bladder: is empty. Uterus: Not seen. Peritoneal and Retroperitoneal Structures: Minimal pelvic free fluid. No lymphadenopathy was noted. Bowel: Distended stomach and moderate dilatation of the small bowel loops (4 cm in caliber) showing multiple air fluid levels, down to ileo-cecal junction. The colon is collapsed. No CT signs of established bowel ischemia. Bones and Soft Tissues: Pelvic bones and soft tissues are unremarkable. 1st degree degenerative spondylolisthesis of L4 over L5 vertebrae. No fractures or abnormal masses were identified. Small ventral/epigastric hernia with fat and fluid content and 12 mm defect. Lower anterior abdominal wall scarring with remarkable fat stranding and left paramidline subcutaneous collection (6 x 2 cm). IMPRESSION: 1. Small bowel obstruction, point of transition at ileo-cecal junction. No CT signs of established bowel ischemia. 2. Minimal pelvic free fluid. 3. Small ventral/epigastric hernia with fat and fluid content. 4. Lower anterior abdominal wall scarring with remarkable fat stranding and left paramidline subcutaneous collection (6 x 2 cm), probably seroma. Electronically signed by Rakesh Godwin 03-16-2025 6:14 PM Dictated: 03/16/25 1644 Transcribed: CT scan - chest: Radiologist's impression: EXAM: CT angio chest PE protocol CLINICAL HISTORY: Chest Pain, eval for PE TECHNIQUE: CT angiography of the chest was performed with and without intravenous contrast with the following protocol: axial images with, reconstructed coronal and sagittal images. Non-contrast images were initially acquired, followed by contrast-enhanced images in arterial and venous phases. Intravenous 119ml optiray 320 contrast [name and volume] was administered using automated injection techniques. Bolus tracking was employed to optimize arterial phase imaging. One of these 3D techniques was utilized: Maximum Intensity Pixel (MIP), 3D Reconstructed Images, Volume Rendered Images, Surface Shaded Rendering. One of the following dose reduction techniques was utilized for this exam: Automated exposure control, adjustment of the mA and/or kV according to patient size, and use of iterative reconstruction. 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 FINDINGS: Aorta and Great Vessels: Ascending Aorta: Normal in caliber, no aneurysm, dissection, or significant atherosclerosis. Aortic Arch: Normal in caliber, no aneurysm, dissection, or significant atherosclerosis. Descending Aorta: Normal in caliber, no aneurysm, dissection, or significant atherosclerosis. Pulmonary Arteries: The main pulmonary artery and its branches are patent. No evidence of pulmonary embolism or significant stenosis. Heart: Cardiac Chambers: Normal in size. No evidence of cardiomegaly. Pericardium: No pericardial effusion or thickening. Lungs and Pleura: Bilateral lower lobar atelectatic bands. Otherwise, the Lungs are clear without evidence of consolidation, collapse, or focal lesions. No pleural effusion or pleural thickening. Mediastinum: No mediastinal mass or abnormal lymphadenopathy. Normal appearance of the trachea and central bronchi. Hilar Structures: Hilar structures are normal without enlargement. Chest Wall: No mass lesions or abnormalities in the chest wall. Vascular Structures: Superior Vena Cava: Patent without evidence of stenosis or thrombus. Inferior Vena Cava: Patent without evidence of stenosis or thrombus. Bones and Soft Tissues: No fractures, lytic, or blastic lesions of the visualized bony structures. Spondylodegenrative changes . Soft tissues are unremarkable. IMPRESSION: 1. No evidence of pulmonary embolism. 2. Bilateral lower lobar atelectasis bands. stable. 3. The rest of the study is unremarkable. Electronically signed by Rakesh Godwin 03-16-2025 5:26 PM Dictated: 03/16/25 1653 Transcribed: ECG Data Attestation: I personally reviewed and interpreted this ECG as follows: Rate (beats per minute): 115 Rhythm: sinus tachycardia Findings: no ST depression, no ST elevation or no prolonged QT MDM Narrative 1622: The patient was evaluated in room . A complete history and physical exam was performed Cardiac monitoring: An order was placed for continuous cardiac monitoring. The monitor shows a rate of 120 with sinus tachycardia rhythm interpreted by sc 1750: Patient vomited per nursing. Zofran ordered for the patient. 1824: Vital signs stable. Labs are unremarkable. CT of the chest negative for PE. CT abdomen pelvis shows small bowel obstruction with the point of transition at the ileocecal junction with no signs of bowel ischemia. There is small ventral/epigastric hernia with fat and fluid as well as a lower anterior abdominal wall probable seroma measuring 6 x 2 cm. Discussed case with general surgery on-call Dr. Tee. He states that if the patient vomits again to place an NG otherwise we can hold off for now. He recommends admission to medicine and states the surgical team will be on consult to have his PA Garima evaluate the patient later tonight. Impression & Plan SBO (small bowel obstruction), Chest pain Discharge Plan Visit Data Chief Complaint: Chest Pain Stated Complaint: CHEST PAIN, NAUSEA, FREQUENT BOWEL MOVEMENTS ED Provider: Julián Tovar Discharge Problem: SBO (small bowel obstruction), Chest pain Patient Disposition: Admitted As Inpatient Forms Stand Alone Forms: [facility] Prescriptions Prescriptions: No Action LACTOBACILLUS (PROBIOTIC) 1 CAP capsule 1 tab PO QAM Qty: 0 lisinopril 10 mg Tablet 10 mg PO QAM montelukast [Singulair] 10 mg Tablet 10 mg PO QAM albuterol sulfate 90 mcg/actuation Hfa Aerosol Inhaler 2 puff INHALATION Q4H PRN (Reason: Wheezing) cyclobenzaprine 10 mg Tablet 10 mg PO HS PRN (Reason: muscle spasms) cetirizine [Zyrtec] 10 mg Tablet 10 mg PO QAM ferrous sulfate 325 mg (65 mg iron) Tablet 325 mg PO UD Rx Instructions: mon/tue/tue, once daily metoprolol succinate 25 mg Tablet Extended Release 24 Hr 25 mg PO QAM atorvastatin 80 mg tablet 80 mg PO QAM ascorbic acid (vitamin C) [Vitamin C] 1,000 mg Tablet 1 g PO QAM esomeprazole magnesium [Nexium] 40 mg Capsule,Delayed Release(Dr/Ec) 40 mg PO QAM Arnuity Ellipta 200 mcg/actuation Blister With Device 1 inh INHALATION QAM Linzess 72 mcg Capsule 144 mcg PO QAM aspirin 81 mg Capsule 81 mg PO QAM isosorbide mononitrate 30 mg tablet extended release 24 hr 30 mg PO QAM clopidogrel 75 mg tablet 75 mg PO QAM fluticasone propionate 50 mcg/actuation [place],Suspension 1 spray INTRANASAL HS Rx Instructions: administer into each nostril polyethylene glycol 3350 [Miralax] 17 gram Powder In Packet 17 g PO DAILY oxycodone-acetaminophen [Percocet] 5-325 mg tablet 1 tab PO Q6H PRN (Reason: pain) Qty: 14 0RF triamcinolone acetonide 0.1 % cream 1 applic TOPICAL DAILY Rx Instructions: PEA SIZED AMOUNT TOPICALLY TO VAGINAL AERA omega-3 fatty acids 1,000 mg Capsule 2,000 mg PO QAM Referrals Referrals: Guadalupe Adams PA-C [Primary Care Provider] -
[2025-03-16] MEDS: OPTIRAY 320 125ml IV ONE (16:47)
[2025-03-16 16:48] LABS: iSTAT Creatinine 0.8 mg/dl (0.6-1.3); iSTAT Hemoglobin 16.3 g/dl (12.0-16.0); iSTAT Ionized Calcium 1.16 mmol/l (1.12-1.32); iSTAT Potassium 3.9 mmol/L (3.3-5.0)
[2025-03-16 16:49] LABS: Basophils # (auto) 0.06 K/uL (0.00-0.20); Basophils % (auto) 0.5 %; Eosinophils # (auto) 0.27 K/uL (0.00-0.50); Eosinophils % (auto) 2.3 %; Hematocrit (blood only) 45.7 % (37.0-47.0); Hemoglobin 15.4 g/dl (12.0-16.0); Immature Granulocytes # (auto) 0.03 K/uL (0.01-0.20); Immature Granulocytes % (auto) 0.3 %; Lymphocytes # (auto) 1.35 K/uL (1.20-3.40); Lymphocytes % (auto) 11.6 %; Mean Corpuscular Hemoglobin 30.9 pg (25.0-34.0); Mean Corpuscular Hgb Conc 33.7 g/dL (32.0-36.0); Mean Corpuscular Volume 91.8 fL (80.0-100.0); Mean Platelet Volume 10.4 fL (9.4-12.4); Monocytes # (auto) 0.61 K/uL (0.11-0.59); Monocytes % (auto) 5.2 %; Neutrophils # (auto) 9.33 K/uL (1.40-6.50); Neutrophils % (auto) 80.1 %; Platelet Count 331 K/uL (130-400); RDW Coefficient of Variation 13.1 % (11.5-14.5); RDW Standard Deviation 43.8 fL (36.4-46.3); Red Blood Count 4.98 M/uL (4.20-5.40); White Blood Count 11.65 K/ul (4.8-10.8)
[2025-03-16 17:11] LABS: BUN Creatinine Ratio 22.5 (10-20); Calcium 9.7 mg/dl (8.6-10.3); Creatinine Clr Calc Pharmacy 76.2 ml/min; Potassium 3.9 mmol/L (3.5-5.1)
[2025-03-16 17:17] LABS: Partial Thromboplastin Time 26 Seconds (21-31); Prothrombin Time 10.9 Seconds (9.0-12.0)
[2025-03-16 17:18] LABS: Troponin I High Sensitivity 11.6 pg/ml (0-14)
--- NOTE | 2025-03-16 17:21 | XRay Report ---
EXAM: Portable AP chest radiograph TECHNIQUE: AP portable radiograph of the chest was obtained. INDICATION: Shortness of breath Comparison: Chest radiograph FINDINGS: LINES and TUBES: None CARDIOVASCULAR: Cardiac silhouette is normal in size. LUNGS/PLEURA: No focal consolidation identified. No significant pleural fluid. No discernible pneumothorax. OSSEOUS/OTHER: No displaced acute osseous process identified. IMPRESSION: No radiographic evidence of acute cardiopulmonary process. Electronically signed by Marcelo Moore 03-16-2025 5:20 PM
--- NOTE | 2025-03-16 17:30 | CT Scan Report ---
EXAM: CT angio chest PE protocol CLINICAL HISTORY: Chest Pain, eval for PE TECHNIQUE: CT angiography of the chest was performed with and without intravenous contrast with the following protocol: axial images with, reconstructed coronal and sagittal images. Non-contrast images were initially acquired, followed by contrast-enhanced images in arterial and venous phases. Intravenous 119ml optiray 320 contrast [name and volume] was administered using automated injection techniques. Bolus tracking was employed to optimize arterial phase imaging. One of these 3D techniques was utilized: Maximum Intensity Pixel (MIP), 3D Reconstructed Images, Volume Rendered Images, Surface Shaded Rendering. One of the following dose reduction techniques was utilized for this exam: Automated exposure control, adjustment of the mA and/or kV according to patient size, and use of iterative reconstruction. COMPARISON: X-ray at the same day, 03/16/2025 15:32:43 BATTERY HAND. FINDINGS: Aorta and Great Vessels: Ascending Aorta: Normal in caliber, no aneurysm, dissection, or significant atherosclerosis. Aortic Arch: Normal in caliber, no aneurysm, dissection, or significant atherosclerosis. Descending Aorta: Normal in caliber, no aneurysm, dissection, or significant atherosclerosis. Pulmonary Arteries: The main pulmonary artery and its branches are patent. No evidence of pulmonary embolism or significant stenosis. Heart: Cardiac Chambers: Normal in size. No evidence of cardiomegaly. Pericardium: No pericardial effusion or thickening. Lungs and Pleura: Bilateral lower lobar atelectatic bands. Otherwise, the Lungs are clear without evidence of consolidation, collapse, or focal lesions. No pleural effusion or pleural thickening. Mediastinum: No mediastinal mass or abnormal lymphadenopathy. Normal appearance of the trachea and central bronchi. Hilar Structures: Hilar structures are normal without enlargement. Chest Wall: No mass lesions or abnormalities in the chest wall. Vascular Structures: Superior Vena Cava: Patent without evidence of stenosis or thrombus. Inferior Vena Cava: Patent without evidence of stenosis or thrombus. Bones and Soft Tissues: No fractures, lytic, or blastic lesions of the visualized bony structures. Spondylodegenrative changes . Soft tissues are unremarkable. IMPRESSION: 1. No evidence of pulmonary embolism. 2. Bilateral lower lobar atelectasis bands. stable. 3. The rest of the study is unremarkable. Electronically signed by Rakesh Godwin 03-16-2025 5:26 PM
[2025-03-16] MEDS: ONDANSETRON INJ 2 MG/ML 2 ML VIAL IV STA ×2 (17:49→18:49)
[2025-03-16] MEDS: SODIUM CHLORIDE 0.9% 1,000 ML IV SCH (17:58)
--- NOTE | 2025-03-16 18:16 | CT Scan Report ---
EXAM: CT abd pelvis IV con only CLINICAL HISTORY: abd pain TECHNIQUE: CT of the abdomen and pelvis was performed with 119ml optiray 320 intravenous contrast, with the following protocol: axial images with, and reconstructed coronal and sagittal images. One of the following dose reduction techniques was utilized for this exam: Automated exposure control, adjustment of the mA and/or kV according to patient size, and use of iterative reconstruction. COMPARISON: No prior studies available for comparison." FINDINGS: Abdomen: Liver: Normal in size, shape, and has homogenous low attenuation denoting fatty infiltration. No focal lesions, cysts, or masses were identified. Hepatic vasculature and biliary ducts are unremarkable. Gallbladder and Biliary System: The gallbladder is normal in size and shape. No wall thickening, pericholecystic fluid, or gallstones were identified. The common bile duct is normal in caliber without dilation. Pancreas: Pancreatic head, body, and tail are visualized and appear normal in size and density. No pancreatic masses or calcifications were noted. The pancreatic duct is not dilated. Spleen: Normal in size, shape, and density. No splenic lesions or masses were identified. Kidneys and Adrenal Glands: Both kidneys are normal in size, shape, and position. Cortical thickness is within normal limits. No renal calculi or hydronephrosis. Adrenal glands are unremarkable with no evidence of masses or hyperplasia. Pelvis: Urinary Bladder: is empty. Uterus: Not seen. Peritoneal and Retroperitoneal Structures: Minimal pelvic free fluid. No lymphadenopathy was noted. Bowel: Distended stomach and moderate dilatation of the small bowel loops (4 cm in caliber) showing multiple air fluid levels, down to ileo-cecal junction. The colon is collapsed. No CT signs of established bowel ischemia. Bones and Soft Tissues: Pelvic bones and soft tissues are unremarkable. 1st degree degenerative spondylolisthesis of L4 over L5 vertebrae. No fractures or abnormal masses were identified. Small ventral/epigastric hernia with fat and fluid content and 12 mm defect. Lower anterior abdominal wall scarring with remarkable fat stranding and left paramidline subcutaneous collection (6 x 2 cm). IMPRESSION: 1. Small bowel obstruction, point of transition at ileo-cecal junction. No CT signs of established bowel ischemia. 2. Minimal pelvic free fluid. 3. Small ventral/epigastric hernia with fat and fluid content. 4. Lower anterior abdominal wall scarring with remarkable fat stranding and left paramidline subcutaneous collection (6 x 2 cm), probably seroma. Electronically signed by Rakesh Godwin 03-16-2025 6:14 PM
[2025-03-16] MEDS ORDERED: HYDROmorphone INJ 0.5 MG/0.5 ML SYR IV PRN (19:14)
--- NOTE | 2025-03-16 19:14 | History & Physical Report ---
Date of Service March 16, 2025 Assessment & Plan (1) SBO (small bowel obstruction): Plan: Recent laparoscopic repair of umbilical hernia with mesh placement on Tuesday that is 03/11/2025 Has been complaining of abdominal pain with nausea vomiting since this morning with some distention Bowel is moving seems to be liquidy after about [address] of the abdomen pelvis did show small bowel obstruction with point of transition at the ileocecal junction and no evidence of bowel ischemia Started with intravenous fluid, antiemetic medications and pain medications She will be n.p.o. for now and may take medications with sips of water from tomorrow morning if condition does not deteriorate Surgery will see her for any further recommendation If vomiting continues she will need to put an NG tube (2) CAD (coronary artery disease): Plan: Has been taking Plavix and aspirin including other medications for the heart Will hold aspirin and Plavix for now in case she will go for any procedure Will give her Nitropaste half inch every 6 hourly as long as she cannot take isosorbide (3) History of Lopez's esophagus: Plan: Continue PPI (4) Sleep apnea: Plan: She can use CPAP (5) History of asthma: Plan: Her asthma is controlled with her no wheezing or shortness of breath Will continue her usual inhalers (6) History of hypertension: Plan: Blood pressure seems to be in the upper side at 147/ She did not take her medications this morning 102 Will give Lopressor 5 mg IV and will continue with metoprolol from tomorrow morning Lisinopril will be continued for tomorrow morning (7) Hx of hyperlipidemia: Plan: Will hold statin now (8) Incisional hernia: Plan: Status post laparoscopic repair of umbilical/Incisional hernia on Tuesday No significant lump on examination of the abdomen DVT prophylaxis Subcu heparin CODE STATUS Full History of Present Illness Chief Complaint: Abdominal pain nausea vomiting and diarrhea since last evening Primary Care Provider: Guadalupe Adams PA-C She is a 55-year-old female significant past medical history of mild asthma, Lopez's esophagitis, CAD, IBS, seasonal allergies, and obstructive sleep apnea apparently underwent laparoscopic umbilical hernia repair by Dr. Holman on Tuesday. She did not have any bowel movement for the last 5 days and was feeling little bloated. She had a bowel movement yesterday around 7 PM and after that she has had more bowel movement and which seems to be liquid now. She started to have abdominal pain which has been getting worse associated with nausea and she was feeling chilly and sweaty with the pain but did not have any fever. She has had nausea and vomiting quite a few times in the emergency room. She feels her abdomen little bloated but denies any significant distention and so far she has been using abdominal binder following the surgery/laparoscopic procedure. Denies any chest pain, any shortness of breath or palpitation. And no problem with the urine and does not have any swelling of the legs. CT of the abdomen in the ER showed intestinal obstruction and from that point she was referred for admission and surgical evaluation. Allergies Allergy/AdvReac Type Severity Reaction Status Date / Time No Known Allergies Allergy Verified 03/11/25 05:39 Home Medications Medication Instructions Recorded Confirmed Type LACTOBACILLUS (PROBIOTIC) 1 tab PO QAM ##0 08/02/14 03/16/25 History albuterol sulfate 90 mcg/actuation 2 puff inhalation Q4H PRN Wheezing 08/30/22 03/16/25 History aerosol inhaler lisinopril 10 mg tablet 10 mg PO QAM 08/30/22 03/16/25 History montelukast 10 mg tablet 10 mg PO QAM 08/30/22 03/16/25 History (Singulair) cetirizine 10 mg tablet (Zyrtec) 10 mg PO QAM 11/08/24 03/16/25 History cyclobenzaprine 10 mg tablet 10 mg PO HS PRN muscle spasms 11/08/24 03/16/25 History ferrous sulfate 325 mg (65 mg 325 mg PO UD 11/08/24 03/16/25 History iron) tablet metoprolol succinate 25 mg 25 mg PO QAM 11/08/24 03/16/25 History tablet,extended release 24 hr ascorbic acid (vitamin C) 1,000 mg 1 g PO QAM 02/20/25 03/16/25 History tablet (Vitamin C) aspirin 81 mg capsule 81 mg PO QAM 02/20/25 03/16/25 History atorvastatin 80 mg tablet 80 mg PO QAM 02/20/25 03/16/25 History clopidogrel 75 mg tablet 75 mg PO QAM 02/20/25 03/16/25 History esomeprazole magnesium 40 mg 40 mg PO QAM 02/20/25 03/16/25 History capsule,delayed release (Nexium) fluticasone furoate 200 1 inh inhalation QAM 02/20/25 03/16/25 History mcg/actuation blister powder for inhalation (Arnuity Ellipta) fluticasone propionate 50 1 spray intranasal HS 02/20/25 03/16/25 History mcg/actuation nasal spray,suspension isosorbide mononitrate 30 mg 30 mg PO QAM 02/20/25 03/16/25 History tablet,extended release 24 hr linaclotide 72 mcg capsule 144 mcg PO QAM 02/20/25 03/16/25 History (Linzess) oxycodone-acetaminophen 5 mg-325 1 tab PO Q6H PRN pain #14 tabs 03/11/25 03/16/25 Rx mg tablet (Percocet) polyethylene glycol 3350 17 gram 17 g PO DAILY 03/11/25 03/16/25 History oral powder packet (Miralax) omega-3 fatty acids 1,000 mg 2,000 mg PO QAM 03/16/25 03/16/25 History capsule triamcinolone acetonide 0.1 % 1 applic topical DAILY 03/16/25 03/16/25 History topical cream Past Med/Surg History Problem List (Updated 03/16/25 @ 18:43 by Julián Tovar MD) Chest pain (Acute) SBO (small bowel obstruction) (Acute) Incisional hernia Encounter for pre-operative examination CAD (coronary artery disease) Medical History History of Lopez's esophagus Hx of irritable bowel syndrome Hx of gastroesophageal reflux (GERD) Hx of coronary artery disease stent 10/2024- no stents Follows with [facility] Sleep apnea CPAP (compliant) History of asthma Hx of hyperlipidemia History of hypertension Surgical History History of esophagogastroduodenoscopy (EGD) Hx of colonoscopy 11/2024 Hx of total hysterectomy + removal b/l fallopian tubes and unilateral oophorectomy Hx of unilateral oophorectomy (2000) History of laparoscopic appendectomy (2000) Hx of tonsillectomy Hx of heart artery stent 08/2022 Hx of cardiac cath stent 10/2024- no stents Social History Smoking Status: Former smoker Second Hand Exposure: No; Do You Dip or Chew Tobacco: No; Tobacco Cessation Education Requested by Patient: No Hx Alcohol Use: Yes Alcohol type: beer Hx Substance Use: No Preferred Language: Serbian Communication Ability: Effective 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 Sales Executive Required: No Beliefs That Will Affect Care: None Current Living Situation: Spouse Other Information That Helps Us Care for You: No Feels Safe at Home: Yes Safety Concerns: Feels Safe At This Time Assistive Devices: None Review of Systems Review of Systems: All systems reviewed and are unremarkable except as noted below Physical Exam Physical Exam: Lying in bed with acute distress due to abdominal discomfort and pain and looks very anxious Constitutional: + ill appearing and average body habitus Eyes: PERRL, conjunctivae normal, anicteric sclerae ENMT: external ear and nose normal, oropharynx normal Neck: trachea midline, no thyromegaly Respiratory: no respiratory distress Auscultation: lungs clear to auscultation bilaterally Cardiovascular: Rate/Rhythm: regular rate and regular rhythm; not tachycardic Extremities: no edema Gastrointestinal (Abdomen): Inspection/Auscultation: abdomen not distended and + abnormal bowel sounds (Sluggish) Percussion/Palpation: + abdomen tender and abdomen soft Musculoskeletal: No acute arthritis involving any of the joint Neurologic: normal touch/pain/proprioception and moves all extremities; no focal motor deficits Psychiatric: A+Ox3, euthymic affect Lymphatic: no cervical or axillary lymphadenopathy Results & Data Results & Data Vital Signs (Past 12 Hours) Vital Signs Temp Pulse Resp BP Pulse Ox O2 Del Method 03/16/25 18:06 94 H 18 93 Room Air 03/16/25 18:01 147/102 H 03/16/25 18:00 90 17 91 03/16/25 17:28 96 H 03/16/25 16:40 Room Air 03/16/25 16:18 36.4 C L 127 H 19 146/100 H 93 Room Air Laboratory Results Short CBC 03/16/25 Range/Units 16:31 WBC 11.65 H (4.8-10.8) K/ul Hgb 15.4 (12.0-16.0) g/dl Hct 45.7 (37.0-47.0) % Plt Count 331 (130-400) K/uL BMP 03/16/25 16:31 Sodium 140 Potassium 3.9 Chloride 99 Carbon Dioxide 34 H BUN 18 Creatinine 0.80 Glucose 133 H Calcium 9.7 Medications Administered Current Inpatient Medications Sodium Chloride (Nss) 1,000 mls @ 125 mls/hr IV .Q8H MEDARDO Stop: 03/17/25 17:59 Last Admin: 03/16/25 17:58 Dose: 125 mls/hr Nitroglycerin (Nitroglycerin 2% Ointment 30gm Tube) 0.5 inch EXT Q6H MEDARDO Stop: 04/15/25 18:59
[2025-03-16] MEDS: NITROGLYCERIN 2% OINTMENT 30GM TUBE EXT SCH (19:37)
--- NOTE | 2025-03-16 22:55 | Surgery Consultation ---
Date of Consultation March 16, 2025 Assessment & Plan (1) SBO (small bowel obstruction): Patient s/p laparoscopic incisions/umbilical hernia repair by Dr. Holman on 03/11 who was found to have an SBO. Patient has been admitted to the medical service and from a surgical standpoint recommend the following: -During my evaluation the patient still with complaints of severe nausea despite medication. Patient is agreeable to NGT placement at this time. -Patient to remain NPO, NGT to remain in place to suction, IV hydration, and try to limit narcotic pain medications -Patient also noted to have macular rash overlying her abdomen, could be secondary to irritation from her abdominal binder vs reaction to the prep solution used in the OR. Recommend supportive care and patient asking for Benadryl. -Medical management per primary team, surgery will continue to follow History of Present Illness Reason for Consultation: SBO History of Present Illness The patient is a 55-year-old female who presented to the emergency department for complaints of abdominal pain, distention, nausea and vomiting. To note, the patient recently underwent laparoscopic incisions/umbilical hernia repair by Dr. Holman on 03/11. The patient states since surgery she has been wearing her abdominal binder as instructed. She states that she did have multiple bowel movements last evening and is still passing gas. However, this evening the patient started with abdominal pain and nausea and once she came to the emergency room she did have a few episodes of vomiting. The patient also notes she started with a rash across her abdomen yesterday which she feels is from the OR prep solution. The patient was worked up in the emergency department and was found to have CT findings of a small bowel obstruction. The patient was seen and evaluated at bedside this evening. She is nontoxic appearing and VSS however she still complains of significant nausea that has not improved with medication. On exam the patient's abdomen is soft and she does have appropriate TTP over her incision sites. Her surgical sites are c/d/i and no apparent infection. She also does have a macular red rash overlying her abdomen. Allergies Allergy/AdvReac Type Severity Reaction Status Date / Time No Known Allergies Allergy Verified 03/11/25 05:39 Home Medications Medication Instructions Recorded Confirmed Type LACTOBACILLUS (PROBIOTIC) 1 tab PO QAM ##0 08/02/14 03/16/25 History albuterol sulfate 90 mcg/actuation 2 puff inhalation Q4H PRN Wheezing 08/30/22 03/16/25 History aerosol inhaler lisinopril 10 mg tablet 10 mg PO QAM 08/30/22 03/16/25 History montelukast 10 mg tablet 10 mg PO QAM 08/30/22 03/16/25 History (Singulair) cetirizine 10 mg tablet (Zyrtec) 10 mg PO QAM 11/08/24 03/16/25 History cyclobenzaprine 10 mg tablet 10 mg PO HS PRN muscle spasms 11/08/24 03/16/25 History ferrous sulfate 325 mg (65 mg 325 mg PO UD 11/08/24 03/16/25 History iron) tablet metoprolol succinate 25 mg 25 mg PO QAM 11/08/24 03/16/25 History tablet,extended release 24 hr ascorbic acid (vitamin C) 1,000 mg 1 g PO QAM 02/20/25 03/16/25 History tablet (Vitamin C) aspirin 81 mg capsule 81 mg PO QAM 02/20/25 03/16/25 History atorvastatin 80 mg tablet 80 mg PO QAM 02/20/25 03/16/25 History clopidogrel 75 mg tablet 75 mg PO QAM 02/20/25 03/16/25 History esomeprazole magnesium 40 mg 40 mg PO QAM 02/20/25 03/16/25 History capsule,delayed release (Nexium) fluticasone furoate 200 1 inh inhalation [facility] 02/20/25 03/16/25 History mcg/actuation blister powder for inhalation (Arnuity Ellipta) fluticasone propionate 50 1 spray intranasal HS 02/20/25 03/16/25 History mcg/actuation nasal spray,suspension isosorbide mononitrate 30 mg 30 mg PO QAM 02/20/25 03/16/25 History tablet,extended release 24 hr linaclotide 72 mcg capsule 144 mcg PO QAM 02/20/25 03/16/25 History (Linzess) oxycodone-acetaminophen 5 mg-325 1 tab PO Q6H PRN pain #14 tabs 03/11/25 03/16/25 Rx mg tablet (Percocet) polyethylene glycol 3350 17 gram 17 g PO DAILY 03/11/25 03/16/25 History oral powder packet (Miralax) omega-3 fatty acids 1,000 mg 2,000 mg PO QAM 03/16/25 03/16/25 History capsule triamcinolone acetonide 0.1 % 1 applic topical DAILY 03/16/25 03/16/25 History topical cream Patient History Medical History History of Lopez's esophagus Hx of irritable bowel syndrome Hx of gastroesophageal reflux (GERD) Hx of coronary artery disease stent 10/2024- no stents Follows with [facility] Sleep apnea CPAP (compliant) History of asthma Hx of hyperlipidemia History of hypertension Surgical History History of esophagogastroduodenoscopy (EGD) Hx of colonoscopy 11/2024 Hx of total hysterectomy + removal b/l fallopian tubes and unilateral oophorectomy Hx of unilateral oophorectomy (2000) History of laparoscopic appendectomy (2000) Hx of tonsillectomy Hx of heart artery stent 08/2022 Hx of cardiac cath stent 10/2024- no stents Social History Smoking Status: Former smoker Second Hand Exposure: Yes (hx as child); Do You Dip or Chew Tobacco: No; Hx Alcohol Use: Yes Alcohol type: beer Hx Substance Use: No Preferred Language: Kazakh Communication Ability: Effective Piano Tuner Required: No Beliefs That Will Affect Care: None Current Living Situation: Spouse Feels Safe at Home: Yes Assistive Devices: CPAP and Glasses Review of Systems Constitutional: as per Subjective / HPI Respiratory: no cough and no dyspnea Cardiovascular: no chest pain, no palpitations and no syncope Gastrointestinal: + abdominal pain, + nausea and + vomitin g Genitourinary: no dysuria, no urinary hesitancy and no hematuria Physical Exam Constitutional: WD/WN, vitals as above Respiratory: normal respiratory effort, lungs clear to auscultation Cardiovascular: RRR, no murmur, no edema Gastrointestinal (Abdomen): Abdomen soft, appropriate TTP over incisions. Incisions are c/d/i with Dermabond in place and no infection present. +Macular rash overlying abdomen Results & Data Vital Signs (Past 12 Hours) Vital Signs Temp Pulse Pulse Resp BP BP Pulse Ox 03/16/25 22:38 112 H 20 171/108 H 94 03/16/25 21:30 96 H 17 170/105 H 94 03/16/25 21:18 93 H 03/16/25 21:00 180/105 H 03/16/25 21:00 94 H 14 93 03/16/25 20:33 89 19 94 03/16/25 20:03 95 H 25 H 100 03/16/25 20:00 175/93 H 03/16/25 19:33 83 13 98 03/16/25 19:31 173/105 H 03/16/25 19:01 159/86 H 03/16/25 19:00 83 19 88 L 03/16/25 18:42 88 20 98 03/16/25 18:32 159/65 H 03/16/25 18:06 94 H 18 93 03/16/25 18:03 90 12 94 03/16/25 18:01 147/102 H 03/16/25 18:01 147/102 H 03/16/25 18:00 90 17 91 03/16/25 17:28 96 H 03/16/25 16:40 03/16/25 16:18 36.4 C L 127 H 19 146/100 H 93 O2 Del Method 03/16/25 22:38 Room Air 03/16/25 21:30 03/16/25 21:18 03/16/25 21:00 03/16/25 21:00 03/16/25 20:33 03/16/25 20:03 03/16/25 20:00 03/16/25 19:33 03/16/25 19:31 03/16/25 19:01 03/16/25 19:00 03/16/25 18:42 03/16/25 18:32 03/16/25 18:06 Room Air 03/16/25 18:03 03/16/25 18:01 03/16/25 18:01 03/16/25 18:00 03/16/25 17:28 03/16/25 16:40 Room Air 03/16/25 16:18 Room Air Diagnostic Findings EXAM: CT abd pelvis IV con only CLINICAL HISTORY: abd pain TECHNIQUE: CT of the abdomen and pelvis was performed with 119ml optiray 320 intravenous contrast, with the following protocol: axial images with, and reconstructed coronal and sagittal images. One of the following dose reduction techniques was utilized for this exam: Automated exposure control, adjustment of the mA and/or kV according to patient size, and use of iterative reconstruction. COMPARISON: No prior studies available for comparison." FINDINGS: Abdomen: Liver: Normal in size, shape, and has homogenous low attenuation denoting fatty infiltration. No focal lesions, cysts, or masses were identified. Hepatic vasculature and biliary ducts are unremarkable. Gallbladder and Biliary System: The gallbladder is normal in size and shape. No wall thickening, pericholecystic fluid, or gallstones were identified. The common bile duct is normal in caliber without dilation. Pancreas: Pancreatic head, body, and tail are visualized and appear normal in size and density. No pancreatic masses or calcifications were noted. The pancreatic duct is not dilated. Spleen: Normal in size, shape, and density. No splenic lesions or masses were identified. Kidneys and Adrenal Glands: Both kidneys are normal in size, shape, and position. Cortical thickness is within normal limits. No renal calculi or hydronephrosis. Adrenal glands are unremarkable with no evidence of masses or hyperplasia. Pelvis: Urinary Bladder: is empty. Uterus: Not seen. Peritoneal and Retroperitoneal Structures: Minimal pelvic free fluid. No lymphadenopathy was noted. Bowel: Distended stomach and moderate dilatation of the small bowel loops (4 cm in caliber) showing multiple air fluid levels, down to ileo-cecal junction. The colon is collapsed. No CT signs of established bowel ischemia. Bones and Soft Tissues: Pelvic bones and soft tissues are unremarkable. 1st degree degenerative spondylolisthesis of L4 over L5 vertebrae. No fractures or abnormal masses were identified. Small ventral/epigastric hernia with fat and fluid content and 12 mm defect. Lower anterior abdominal wall scarring with remarkable fat stranding and left paramidline subcutaneous collection (6 x 2 cm). IMPRESSION: 1. Small bowel obstruction, point of transition at ileo-cecal junction. No CT signs of established bowel ischemia. 2. Minimal pelvic free fluid. 3. Small ventral/epigastric hernia with fat and fluid content. 4. Lower anterior abdominal wall scarring with remarkable fat stranding and left paramidline subcutaneous collection (6 x 2 cm), probably seroma. PG Care Time/CCT Total # of Minutes Spent Total Time Spent with Patient: Total time spent is greater than 50% in coordination of care (as documented) at patient's floor/unit and/or counseling patient: [place] [address] Office/OBS Consult Lvl 1 Patient Type New History Problem Focused Exam Problem Focused Medical Decision Making Straight Forward Diagnoses SBO (small bowel obstruction) K56.609
[2025-03-16] MEDS: PROMETHAZINE 12.5 MG/50.5 ML BAG IV PRN (23:02)
[2025-03-16] MEDS ORDERED: ALBUTEROL HFA 8 GM INHALER INH PRN (23:57)
--- NOTE | 2025-03-17 00:50 | XRay Report ---
Exam(s): XR KUB EXAM: XR Abdomen, 1 View CLINICAL HISTORY: NG placement. TECHNIQUE: Frontal supine view of the abdomen/pelvis. COMPARISON: No relevant prior studies available. FINDINGS: NG tube with tip in the body the stomach. Multiple loops of gas distended small bowel the upper abdomen suggests an ileus versus obstruction. IMPRESSION: NG tube tip within the stomach. Electronically signed by: Harsha Herbert M.D. 03/17/25 00:49 AM
[2025-03-17] MEDS: CHLORASEPTIC (PHENOL) 1.4% SOLN 180 ML BTL MT PRN (00:58)
[2025-03-17] MEDS: PANTOprazole 40 MG/10 ML SYR IV SCH (01:00)
[2025-03-17] MEDS: FLUTICASONE PROPIONATE NA SPR 16 GM BTL SCH (01:00)
[2025-03-17] MEDS: METOPROLOL TARTRATE 1 MG/ML VIAL IV STA (01:06)
[2025-03-17 05:57] LABS: Basophils # (auto) 0.03 K/uL (0.00-0.20); Basophils % (auto) 0.3 %; Eosinophils # (auto) 0.32 K/uL (0.00-0.50); Eosinophils % (auto) 3.6 %; Hematocrit (blood only) 37.7 % (37.0-47.0); Hemoglobin 12.7 g/dl (12.0-16.0); Immature Granulocytes # (auto) 0.04 K/uL (0.01-0.20); Immature Granulocytes % (auto) 0.4 %; Lymphocytes # (auto) 1.75 K/uL (1.20-3.40); Lymphocytes % (auto) 19.5 %; Mean Corpuscular Hemoglobin 31.2 pg (25.0-34.0); Mean Corpuscular Hgb Conc 33.7 g/dL (32.0-36.0); Mean Corpuscular Volume 92.6 fL (80.0-100.0); Mean Platelet Volume 10.3 fL (9.4-12.4); Monocytes # (auto) 0.59 K/uL (0.11-0.59); Monocytes % (auto) 6.6 %; Neutrophils # (auto) 6.24 K/uL (1.40-6.50); Neutrophils % (auto) 69.6 %; Platelet Count 274 K/uL (130-400); RDW Coefficient of Variation 13.2 % (11.5-14.5); Red Blood Count 4.07 M/uL (4.20-5.40); White Blood Count 8.97 K/ul (4.8-10.8)
[2025-03-17 06:17] LABS: Albumin Globulin Ratio 1.3 (0.9-2); Albumin Level 3.4 gm/dl (3.4-5.0); BUN Creatinine Ratio 27.4 (10-20); Bilirubin,Total 0.6 mg/dl (0.2-1.0); Calcium 8.7 mg/dl (8.6-10.3); Creatinine Clr Calc Pharmacy 96.3 ml/min; Globulin 2.6 gm/dl (2.5-4.0); Magnesium 1.8 mg/dl (1.7-2.4); Potassium 4.1 mmol/L (3.5-5.1)
--- NOTE | 2025-03-17 06:34 | Surgery Progress Note ---
Date of Service March 17, 2025 Assessment & Plan (1) SBO (small bowel obstruction): Plan: Patient s/p laparoscopic incisions/umbilical hernia repair by Dr. Holman on 03/11 who was found to have an SBO This morning she is feeling better with NGT in place, 100mL output recorded since last night. Keep NGT to suction for this morning. Keep NPO, IV hydraion and pain control as needed Medical management per primary team, surgery will continue to follow Admission and Anticipated Discharge Date Admission Date: March 16, 2025 Supervising Physician Co-Signing Physician Notes She continues to pass flatus, can remove her NG tube and start sips later today Subjective Patient seen and evaluated at bedside this morning. NGT was placed last evening and patient states her nausea has significantly improved. 100mL output from NGT recorded. Denies passing gas or having a BM overnight. Physical Exam Constitutional: WD/WN, vitals as above Respiratory: normal respiratory effort, lungs clear to auscultation Cardiovascular: RRR, no murmur, no edema Gastrointestinal (Abdomen): Abdomen soft, appropriate TTP over incisions. Incisions are c/d/i with Dermabond in place and no infection present. +Macular rash overlying abdomen Results & Data Vital Signs (Past 12 Hours) Vital Signs Temp Pulse Pulse Resp BP BP Pulse Ox 03/17/25 02:27 36.9 C 88 16 148/99 H 92 03/17/25 01:14 75 151/88 H 03/17/25 01:06 98 H 165/96 H 03/17/25 00:01 36.5 C 102 H 16 146/100 H 95 03/16/25 23:48 109 H 03/16/25 23:02 110 H 18 93 03/16/25 23:00 176/101 H 03/16/25 22:38 112 H 20 171/108 H 94 03/16/25 22:33 200/120 H 03/16/25 22:30 123 H 19 03/16/25 21:30 96 H 17 170/105 H 94 03/16/25 21:18 93 H 03/16/25 21:00 180/105 H 03/16/25 21:00 94 H 14 93 03/16/25 20:33 89 19 94 03/16/25 20:03 95 H 25 H 100 03/16/25 20:00 175/93 H 03/16/25 19:33 83 13 98 03/16/25 19:31 173/105 H 03/16/25 19:01 159/86 H 03/16/25 19:00 83 19 88 L 03/16/25 18:42 88 20 98 03/16/25 18:32 159/65 H O2 Del Method 03/17/25 02:27 Room Air 03/17/25 01:14 03/17/25 01:06 03/17/25 00:01 Room Air 03/16/25 23:48 03/16/25 23:02 03/16/25 23:00 03/16/25 22:38 Room Air 03/16/25 22:33 03/16/25 22:30 03/16/25 21:30 03/16/25 21:18 03/16/25 21:00 03/16/25 21:00 03/16/25 20:33 03/16/25 20:03 03/16/25 20:00 03/16/25 19:33 03/16/25 19:31 03/16/25 19:01 03/16/25 19:00 03/16/25 18:42 03/16/25 18:32 PG Care Time/CCT Total # of Minutes Spent Total Time Spent with Patient: Total time spent is greater than 50% in coordination of care (as documented) at patient's floor/unit and/or counseling patient: C[place] [address] Post Operative Follow-Up Patient Type Established Medical Decision Making Straight Forward Diagnoses SBO (small bowel obstruction) K56.609
[2025-03-17] MEDS: TRIAMCINOLONE ACET 0.1% CR 15 GM TUBE TOP SCH (09:02)
[2025-03-17] MEDS: lisinopril 10 MG TAB PO SCH (09:02)
[2025-03-17] MEDS: ISOSORBIDE MONO EXTENDED REL 30 MG TABCR PO SCH (09:02)
[2025-03-17] MEDS: MONTELUKAST SODIUM 10 MG TABLET PO SCH (09:02)
[2025-03-17] MEDS: METOPROLOL SUCC 25MG EXT REL TAB PO SCH (09:02)
--- NOTE | 2025-03-17 13:11 | Electrocardiogram Report ---
Test Reason : Blood Pressure : */* mmHG Vent. Rate : 115 BPM Atrial Rate : 115 BPM P-R Int : 156 ms QRS Dur : 84 ms QT Int : 298 ms P-R-T Axes : 54 16 66 degrees QTcB Int : 412 ms Sinus tachycardia Possible Left atrial enlargement Minimal voltage criteria for LVH, may be normal variant ( [place] product ) Anterior infarct , age undetermined Abnormal ECG When compared with ECG of 30-Aug-2022 15:41, Vent. rate has increased by 60 bpm Confirmed by Linus Nelson ([id number]) on 03/17/2025 1:11:04 PM Referred By: Confirmed By: Linus Nelson
--- NOTE | 2025-03-17 15:21 | Hospitalist Progress Note ---
Date of Service March 17, 2025 Assessment & Plan (1) SBO (small bowel obstruction): Plan: Recent laparoscopic repair of umbilical hernia with mesh placement on Tuesday that is 03/11/2025 Has been complaining of abdominal pain with nausea vomiting since this morning with some distention Bowel is moving seems to be liquidy after about [address] of the abdomen pelvis did show small bowel obstruction with point of transition at the ileocecal junction and no evidence of bowel ischemia Started with intravenous fluid, antiemetic medications and pain medications She will be n.p.o. for now and may take medications with sips of water from tomorrow morning if condition does not deteriorate Surgery will see her for any further recommendation If vomiting continues she will need to put an NG tube Status post NG tube placement last night and it has been draining very minimal amount Clinically much better with decreasing abdominal pain and no distention Has had bowel movement and will likely to start clears orally (2) CAD (coronary artery disease): Plan: Has been taking Plavix and aspirin including other medications for the heart Will hold aspirin and Plavix for now in case she will go for any procedure Will give her Nitropaste half inch every 6 hourly as long as she cannot take isosorbide No cardiac symptoms and does not have any shortness of breath or palpitation (3) History of Lopez's esophagus: Plan: Continue PPI (4) Sleep apnea: Plan: She can use CPAP (5) History of asthma: Plan: Her asthma is controlled with her no wheezing or shortness of breath Will continue her usual inhalers Well-controlled (6) History of hypertension: Plan: Blood pressure seems to be in the upper side at 147/ She did not take her medications this morning 102 Will give Lopressor 5 mg IV and will continue with metoprolol from tomorrow morning Lisinopril will be continued for tomorrow morning (7) Hx of hyperlipidemia: Plan: Will hold statin now (8) Incisional hernia: Plan: Status post laparoscopic repair of umbilical/Incisional hernia on Tuesday No significant lump on examination of the abdomen DVT prophylaxis Subcu heparin CODE STATUS Full Admission and Anticipated Discharge Date Admission Date: March 16, 2025 Subjective 03/17/2025 The patient was seen and examined in medical telemetry unit She has been feeling much better and does not have significant abdominal pain Her drainage from the NG suction tube has decreased a lot She has had bowel movement Review of Systems Review of Systems: All systems reviewed and are unremarkable except as noted below Physical Exam Physical Exam: Lying in bed with acute distress due to abdominal discomfort and pain and looks very anxious Constitutional: + ill appearing and average body habitus Eyes: PERRL, conjunctivae normal, anicteric sclerae ENMT: external ear and nose normal, oropharynx normal Neck: trachea midline, no thyromegaly Respiratory: no respiratory distress Auscultation: lungs clear to auscultation bilaterally Cardiovascular: Rate/Rhythm: regular rate and regular rhythm; not tachycardic Extremities: no edema Gastrointestinal (Abdomen): Inspection/Auscultation: abdomen not distended and + abnormal bowel sounds (Sluggish) Percussion/Palpation: + abdomen tender and abdomen soft Neurologic: normal touch/pain/proprioception and moves all extremities; no focal motor deficits Psychiatric: A+Ox3, euthymic affect Lymphatic: no cervical or axillary lymphadenopathy Results & Data Results & Data Vital Signs (Past 12 Hours) Vital Signs Temp Pulse Pulse Resp BP Pulse Ox O2 Del Method 03/17/25 15:03 83 03/17/25 11:18 36.6 C 92 H 18 166/97 H 97 Room Air 03/17/25 10:00 Room Air 03/17/25 07:58 36.6 C 84 18 145/84 H 93 Room Air 03/17/25 07:32 81 03/17/25 07:12 36.8 C 84 18 147/85 H 93 Room Air Laboratory Results Short CBC 03/16/25 03/17/25 Range/Units 16:31 05:37 WBC 11.65 H 8.97 (4.8-10.8) K/ul Hgb 15.4 12.7 (12.0-16.0) g/dl Hct 45.7 37.7 (37.0-47.0) % Plt Count 331 274 (130-400) K/uL BMP 03/16/25 03/17/25 16:31 05:37 Sodium 140 141 Potassium 3.9 4.1 Chloride 99 105 Carbon Dioxide 34 H 31 BUN 18 17 Creatinine 0.80 0.62 Glucose 133 H 110 H Calcium 9.7 8.7 Liver Function 03/17/25 Range/Units 05:37 Total Bilirubin 0.6 (0.2-1.0) mg/dl AST 15 (13-39) U/L ALT 12 (7-52) U/L Alkaline Phosphatase 50 (34-104) U/L Albumin 3.4 (3.4-5.0) gm/dl Medications Administered Current Inpatient Medications Albuterol (Albuterol Hfa 8 Gm Inhaler) 2 puffs INH Q4H PRN PRN Reason: Wheezing Stop: 04/15/25 23:56 Fluticasone Propionate (Fluticasone Propionate Na Spr 16 Gm Btl) 1 sprays NA HS [facility] Stop: 04/15/25 23:56 Last Admin: 03/17/25 01:00 Dose: 1 sprays Hydromorphone HCl (Hydromorphone Inj 0.5 Mg/0.5 Ml Syr) 0.5 mg IV Q6H PRN PRN Reason: Pain Stop: 03/30/25 19:13 Sodium Chloride (Nss) 1,000 mls @ 125 mls/hr IV .Q8H [facility] Stop: 03/17/25 17:59 Last Infusion: 03/17/25 12:15 Dose: 125 mls/hr Promethazine HCl (Phenergan) 12.5 mg in 50.5 mls @ 202 mls/hr IV Q6H PRN PRN Reason: Nausea And Vomiting Stop: 04/15/25 19:13 Last Infusion: 03/16/25 23:56 Dose: Infused Pantoprazole Sodium (Protonix) 40 mg in 10 mls @ 5 mls/min IV BID [facility] Stop: 04/16/25 00:00 Last Admin: 03/17/25 09:02 Dose: 5 mls/min Isosorbide Mononitrate (Isosorbide [place] Extended Rel 30 Mg Tabcr) 30 mg PO [facility] Stop: 04/16/25 08:59 Last Admin: 03/17/25 09:02 Dose: Not Given Lisinopril (Lisinopril 10 Mg Tab) 10 mg PO [facility] Stop: 04/16/25 08:59 Last Admin: 03/17/25 09:02 Dose: Not Given Metoprolol Succinate (Metoprolol Succ 25mg Ext Rel Tab) 25 mg PO [facility] Stop: 04/16/25 08:59 Last Admin: 03/17/25 09:02 Dose: Not Given Montelukast Sodium (Montelukast Sodium 10 Mg Tablet) 10 mg PO QAM [facility] Stop: 04/16/25 08:59 Last Admin: 03/17/25 09:02 Dose: Not Given Nitroglycerin (Nitroglycerin 2% Ointment 30gm Tube) 0.5 inch EXT Q6H [facility] Stop: 04/15/25 18:59 Last Admin: 03/17/25 12:36 Dose: 0.5 inch Phenol (Chloraseptic (Phenol) 1.4% Soln 180 Ml Btl) 1 sprays MT Q1H PRN PRN Reason: Sore Throat Stop: 04/15/25 22:49 Last Admin: 03/17/25 00:58 Dose: 1 sprays Triamcinolone Acetonide (Triamcinolone Acet 0.1% Cr 15 Gm Tube) 1 appln TOP DAILY [facility] Stop: 04/16/25 08:59 Last Admin: 03/17/25 09:02 Dose: Not Given
[2025-03-17] MEDS: D5W AND NSS 1,000 ML IV SCH (20:45)
[2025-03-18 06:25] LABS: Basophils # (auto) 0.03 K/uL (0.00-0.20); Basophils % (auto) 0.5 %; Eosinophils # (auto) 0.55 K/uL (0.00-0.50); Eosinophils % (auto) 8.3 %; Hematocrit (blood only) 32.4 % (37.0-47.0); Hemoglobin 10.7 g/dl (12.0-16.0); Immature Granulocytes # (auto) 0.03 K/uL (0.01-0.20); Immature Granulocytes % (auto) 0.5 %; Lymphocytes % (auto) 28.7 %; Mean Corpuscular Hemoglobin 31.1 pg (25.0-34.0); Mean Corpuscular Volume 94.2 fL (80.0-100.0); Mean Platelet Volume 10.3 fL (9.4-12.4); Monocytes # (auto) 0.56 K/uL (0.11-0.59); Monocytes % (auto) 8.5 %; Neutrophils # (auto) 3.55 K/uL (1.40-6.50); Neutrophils % (auto) 53.5 %; Platelet Count 224 K/uL (130-400); RDW Coefficient of Variation 13.2 % (11.5-14.5); RDW Standard Deviation 45.3 fL (36.4-46.3); Red Blood Count 3.44 M/uL (4.20-5.40); White Blood Count 6.62 K/ul (4.8-10.8)
[2025-03-18 06:38] LABS: BUN Creatinine Ratio 26.8 (10-20); Calcium 8.1 mg/dl (8.6-10.3); Creatinine Clr Calc Pharmacy 106.6 ml/min; Magnesium 1.7 mg/dl (1.7-2.4); Potassium 3.5 mmol/L (3.5-5.1)
[2025-03-18] MEDS: ATORVASTATIN 40 MG TAB PO SCH (09:32)
[2025-03-18] MEDS: CLOPIDOGREL BISULFATE 75 MG TAB PO SCH (09:32)
[2025-03-18] MEDS: CETIRIZINE HCL 10 MG TABLET PO SCH (09:32)
[2025-03-18] MEDS: ASPIRIN 81 MG ECTAB PO SCH (09:32)
[2025-03-18] MEDS: PANTOprazole 40 MG TAB PO SCH (09:32)
--- NOTE | 2025-03-18 10:27 | Surgery Progress Note ---
Date of Service March 18, 2025 Assessment & Plan (1) Incisional hernia: (2) SBO (small bowel obstruction): Plan 55-year-old woman 1 week status post laparoscopic incisional hernia repair with extensive dissection of the hernia sac returns and is readmitted to the hospital with significant postoperative ileus. This has significantly improved. She is passing significant amounts of flatus and is having bowel movements. We will place her on a clear liquid diet today. I encouraged her to ambulate. Most likely discharge tomorrow. Admission and Anticipated Discharge Date Admission Date: March 16, 2025 Subjective 1 week status post laparoscopic incisional hernia repair with extensive dissection of the hernia sac. She is returned with an ileus. She is passing flatus and having bowel movements. She passed a significant amount of flatus yesterday during the night. She had an NG tube which was removed yesterday. She is on sips of clears. She denies nausea or vomiting. She denies fevers or chills. Physical Exam Physical Exam: NAD, A&O x 3 NCAT AF VSS Abdomen: Soft, mild TTP Incisions C/D/I; Dermabond in place Results & Data Vital Signs (Past 12 Hours) Vital Signs Temp Pulse Pulse Resp BP Pulse Ox O2 Del Method 03/18/25 07:34 36.8 C 72 20 165/90 H 98 Room Air 03/18/25 05:44 77 03/18/25 01:55 36.8 C 76 16 121/66 94 Room Air 03/17/25 22:25 36.7 C 80 16 124/71 93 Room Air
--- NOTE | 2025-03-18 13:45 | Hospitalist Progress Note ---
Date of Service March 18, 2025 Assessment & Plan (1) SBO (small bowel obstruction): Plan: Recent laparoscopic repair of umbilical hernia with mesh placement on Tuesday that is 03/11/2025 Has been complaining of abdominal pain with nausea vomiting since this morning with some distention Bowel is moving seems to be liquidy after about [address] of the abdomen pelvis did show small bowel obstruction with point of transition at the ileocecal junction and no evidence of bowel ischemia Started with intravenous fluid, antiemetic medications and pain medications She will be n.p.o. for now and may take medications with sips of water from tomorrow morning if condition does not deteriorate Surgery will see her for any further recommendation If vomiting continues she will need to put an NG tube Status post NG tube placement last night and it has been draining very minimal amount Clinically much better with decreasing abdominal pain and no distention Has had bowel movement and will likely to start clears orally Abdominal symptoms has resolved except minimal discomfort and bowel is moved Will start clears and will advance diet accordingly from tomorrow Likely discharge tomorrow (2) CAD (coronary artery disease): Plan: Has been taking Plavix and aspirin including other medications for the heart Will hold aspirin and Plavix for now in case she will go for any procedure Will give her Nitropaste half inch every 6 hourly as long as she cannot take isosorbide No cardiac symptoms and does not have any shortness of breath or palpitation (3) History of Lopez's esophagus: Plan: Continue PPI (4) Sleep apnea: Plan: She can use CPAP (5) History of asthma: Plan: Her asthma is controlled with her no wheezing or shortness of breath Will continue her usual inhalers Well-controlled (6) History of hypertension: Plan: Blood pressure seems to be in the upper side at 147/ She did not take her medications this morning 102 Will give Lopressor 5 mg IV and will continue with metoprolol from tomorrow morning Lisinopril will be continued for tomorrow morning (7) Hx of hyperlipidemia: Plan: Will hold statin now (8) Incisional hernia: Plan: Status post laparoscopic repair of umbilical/Incisional hernia on Tuesday No significant lump on examination of the abdomen DVT prophylaxis Subcu heparin CODE STATUS Full Admission and Anticipated Discharge Date Admission Date: March 16, 2025 Subjective 03/17/2025 The patient was seen and examined in medical telemetry unit She has been feeling much better and does not have significant abdominal pain Her drainage from the NG suction tube has decreased a lot She has had bowel movement 03/18/2025 The patient was seen and examined in medical telemetry unit She has been feeling much better and has had bowel movement Denies any abdominal symptoms Review of Systems Review of Systems: All systems reviewed and are unremarkable except as noted below Physical Exam Physical Exam: Lying in bed with acute distress due to abdominal discomfort and pain and looks very anxious Constitutional: + ill appearing and average body habitus Eyes: PERRL, conjunctivae normal, anicteric sclerae ENMT: external ear and nose normal, oropharynx normal Neck: trachea midline, no thyromegaly Respiratory: no respiratory distress Auscultation: lungs clear to auscultation bilaterally Cardiovascular: Rate/Rhythm: regular rate and regular rhythm; not tachycardic Extremities: no edema Gastrointestinal (Abdomen): Inspection/Auscultation: abdomen not distended and + abnormal bowel sounds (Sluggish) Percussion/Palpation: + abdomen tender and abdomen soft Skin: Diffuse rash involving the abdominal binder site has improved a lot Neurologic: normal touch/pain/proprioception and moves all extremities; no focal motor deficits Psychiatric: A+Ox3, euthymic affect Lymphatic: no cervical or axillary lymphadenopathy Results & Data Results & Data Vital Signs (Past 12 Hours) Vital Signs Temp Pulse Pulse Resp BP Pulse Ox O2 Del Method 03/18/25 11:26 36.6 C 67 18 148/77 H 96 Room Air 03/18/25 07:34 36.8 C 72 20 165/90 H 98 Room Air 03/18/25 05:44 77 03/18/25 01:55 36.8 C 76 16 121/66 94 Room Air Laboratory Results Short CBC 03/18/25 Range/Units 06:10 WBC 6.62 (4.8-10.8) K/ul Hgb 10.7 L (12.0-16.0) g/dl Hct 32.4 L (37.0-47.0) % Plt Count 224 (130-400) K/uL [facility] 03/18/25 06:10 Sodium 141 Potassium 3.5 Chloride 108 H Carbon Dioxide 30 BUN 15 Creatinine 0.56 L Glucose 93 Calcium 8.1 L Medications Administered Current Inpatient Medications Albuterol (Albuterol Hfa 8 Gm Inhaler) 2 puffs INH Q4H PRN PRN Reason: Wheezing Stop: 04/15/25 23:56 Aspirin (Aspirin 81 Mg Ectab) 81 mg PO [facility] Stop: 04/17/25 08:59 Last Admin: 03/18/25 09:32 Dose: 81 mg Atorvastatin Calcium (Atorvastatin 40 Mg Tab) 80 mg PO [facility] Stop: 04/17/25 08:59 Last Admin: 03/18/25 09:32 Dose: 80 mg Cetirizine HCl (Cetirizine Hcl 10 Mg Tablet) 10 mg PO [facility] Stop: 04/17/25 08:59 Last Admin: 03/18/25 09:32 Dose: 10 mg Clopidogrel Bisulfate (Clopidogrel Bisulfate 75 Mg Tab) 75 mg PO [facility] Stop: 04/17/25 08:59 Last Admin: 03/18/25 09:32 Dose: 75 mg Fluticasone Propionate (Fluticasone Propionate Na Spr 16 Gm Btl) 1 sprays NA HS [facility] Stop: 04/15/25 23:56 Last Admin: 03/17/25 20:41 Dose: 1 sprays Hydromorphone HCl (Hydromorphone Inj 0.5 Mg/0.5 Ml Syr) 0.5 mg IV Q6H PRN PRN Reason: Pain Stop: 03/30/25 19:13 Promethazine HCl (Phenergan) 12.5 mg in 50.5 mls @ 202 mls/hr IV Q6H PRN PRN Reason: Nausea And Vomiting Stop: 04/15/25 19:13 Last Infusion: 03/16/25 23:56 Dose: Infused Dextrose/Sodium Chloride (For D5w And Nss) 1,000 mls @ 80 mls/hr IV .[id number] [facility] Stop: 03/18/25 18:44 Last Admin: 03/18/25 09:42 Dose: 80 mls/hr Isosorbide Mononitrate (Isosorbide [place] Extended Rel 30 Mg Tabcr) 30 mg PO [facility] Stop: 04/16/25 08:59 Last Admin: 03/18/25 08:44 Dose: 30 mg Lisinopril (Lisinopril 10 Mg Tab) 10 mg PO [facility] Stop: 04/16/25 08:59 Last Admin: 03/18/25 08:44 Dose: 10 mg Metoprolol Succinate (Metoprolol Succ 25mg Ext Rel Tab) [facility] Stop: 04/16/25 08:59 Last Admin: 03/18/25 08:44 Dose: 25 mg Montelukast Sodium (Montelukast Sodium 10 Mg Tablet) [facility] Stop: 04/16/25 08:59 Last Admin: 03/18/25 08:44 Dose: 10 mg Pantoprazole Sodium (Pantoprazole 40 Mg Tab) 40 mg PO [facility] Stop: 04/17/25 08:59 Last Admin: 03/18/25 09:32 Dose: 40 mg Phenol (Chloraseptic (Phenol) 1.4% Soln 180 Ml Btl) 1 sprays MT Q1H PRN PRN Reason: Sore Throat Stop: 04/15/25 22:49 Last Admin: 03/17/25 20:49 Dose: 1 sprays Triamcinolone Acetonide (Triamcinolone Acet 0.1% Cr 15 Gm Tube) 1 appln TOP DAILY [facility] Stop: 04/16/25 08:59 Last Admin: 03/18/25 08:38 Dose: Not Given
[2025-03-18] MEDS: ACETAMINOPHEN 325 MG TAB PO PRN (20:01)
[2025-03-19 07:41] VITALS: RESP 18
--- NOTE | 2025-03-19 09:22 | Surgery Progress Note ---
Date of Service March 19, 2025 Assessment & Plan (1) Incisional hernia: (2) SBO (small bowel obstruction): Plan 55-year-old woman 1 week status post laparoscopic incisional hernia repair with extensive dissection of the hernia sac returns and is readmitted to the hospital with significant postoperative ileus. This has significantly improved. Now having multiple liquid bowel movements and tolerating clear liquids. Plan: Advance diet to low fiber, if does well can be discharged from surgical standpoint low fiber diet for 1 week given small bowel ileus and manipulation during hernia repair, then can resume high fiber diet surgical follow up will be rescheduled by office Discussed with Dr. Holman who agrees with above Admission and Anticipated Discharge Date Admission Date: March 16, 2025 Subjective feeling better minimal abdominal pain multiple loose bowel movements tolerated clear liquids no n,v hungry walking hallway Physical Exam Constitutional: WD/WN, vitals as above cooperative and comfortable; no acute distress and not ill appearing Respiratory: normal respiratory effort; no respiratory distress Gastrointestinal (Abdomen): Inspection/Auscultation: abdomen normal to inspection, + abdominal surgical scar (midline low laparotomy) and + abdominal surgical incision (c/d/i with dermabond); abdomen not distended Percussion/Palpation: abdomen soft; abdomen nontender, no guarding and abdomen not rigid Skin: + rash (entire abdomen, macularpapular) Psychiatric: A+Ox3, euthymic affect Results & Data Vital Signs (Past 12 Hours) Vital Signs Temp Pulse Pulse Resp BP Pulse Ox O2 Del Method 03/19/25 07:40 36.8 C 98 H 18 133/80 97 Room Air 03/19/25 03:33 36.5 C 76 16 138/78 94 Room Air 03/18/25 23:03 36.4 C 67 16 124/61 95 Room Air 03/18/25 21:49 72 Laboratory Results 03/18/25 03/18/25 Range/Units 12:19 12:15 POC Glucose 85 69 L* (70-99) mg/dl
--- NOTE | 2025-03-19 11:14 | Hospitalist Progress Note ---
Date of Service March 19, 2025 Assessment & Plan (1) SBO (small bowel obstruction): Plan: Recent laparoscopic repair of umbilical hernia with mesh placement on Tuesday that is 03/11/2025 Has been complaining of abdominal pain with nausea vomiting since this morning with some distention Bowel is moving seems to be liquidy after about [address] of the abdomen pelvis did show small bowel obstruction with point of transition at the ileocecal junction and no evidence of bowel ischemia Started with intravenous fluid, antiemetic medications and pain medications She will be n.p.o. for now and may take medications with sips of water from tomorrow morning if condition does not deteriorate Surgery will see her for any further recommendation If vomiting continues she will need to put an NG tube Status post NG tube placement last night and it has been draining very minimal amount Clinically much better with decreasing abdominal pain and no distention Has had bowel movement and will likely to start clears orally Abdominal symptoms has resolved except minimal discomfort and bowel is moved Will start clears and will advance diet accordingly from tomorrow Has been feeling much better and tolerating a low fiber diet with minimal abdominal discomfort and has been having bowel movement with loose stools She will be discharged home this afternoon and will continue low fiber diet for a week as per the instructions Will see PCP as an outpatient also surgery follow-up as an outpatient (2) CAD (coronary artery disease): Plan: Has been taking Plavix and aspirin including other medications for the heart Will hold aspirin and Plavix for now in case she will go for any procedure Will give her Nitropaste half inch every 6 hourly as long as she cannot take isosorbide No cardiac symptoms and does not have any shortness of breath or palpitation All of her medications have been restarted (3) History of Lopez's esophagus: Plan: Continue PPI (4) Sleep apnea: Plan: She can use CPAP (5) History of asthma: Plan: Her asthma is controlled with her no wheezing or shortness of breath Will continue her usual inhalers Well-controlled (6) History of hypertension: Plan: Blood pressure seems to be in the upper side at 147/ She did not take her medications this morning 102 Will give Lopressor 5 mg IV and will continue with metoprolol from tomorrow morning Lisinopril will be continued for tomorrow morning (7) Hx of hyperlipidemia: Plan: Will hold statin now (8) Incisional hernia: Plan: Status post laparoscopic repair of umbilical/Incisional hernia on Tuesday No significant lump on examination of the abdomen DVT prophylaxis Subcu heparin CODE STATUS Full Admission and Anticipated Discharge Date Admission Date: March 16, 2025 Subjective 03/17/2025 The patient was seen and examined in medical telemetry unit She has been feeling much better and does not have significant abdominal pain Her drainage from the NG suction tube has decreased a lot She has had bowel movement 03/18/2025 The patient was seen and examined in medical telemetry unit She has been feeling much better and has had bowel movement Denies any abdominal symptoms 03/19/2025 The patient was seen and examined in medical telemetry unit She has been feeling much better and complains to have minimal abdominal discomfort without any nausea no vomiting She has been having loose stools Tolerating diet and she will be discharged home this afternoon Review of Systems Review of Systems: All systems reviewed and are unremarkable except as noted below Physical Exam Physical Exam: Lying in bed with acute distress due to abdominal discomfort and pain and looks very anxious Constitutional: + ill appearing and average body habitus Eyes: PERRL, conjunctivae normal, anicteric sclerae ENMT: external ear and nose normal, oropharynx normal Neck: trachea midline, no thyromegaly Respiratory: no respiratory distress Auscultation: lungs clear to auscultation bilaterally Cardiovascular: Rate/Rhythm: regular rate and regular rhythm; not tachycardic Extremities: no edema Gastrointestinal (Abdomen): Inspection/Auscultation: abdomen not distended and + abnormal bowel sounds (Sluggish) Percussion/Palpation: abdomen soft; abdomen nontender Neurologic: normal touch/pain/proprioception and moves all extremities; no focal motor deficits Psychiatric: A+Ox3, euthymic affect Lymphatic: no cervical or axillary lymphadenopathy Results & Data Results & Data Vital Signs (Past 12 Hours) Vital Signs Temp Pulse Pulse Resp BP Pulse Ox O2 Del Method 03/19/25 10:50 70 03/19/25 07:40 36.8 C 98 H 18 133/80 97 Room Air 03/19/25 03:33 36.5 C 76 16 138/78 94 Room Air Medications Administered Current Inpatient Medications Acetaminophen (Acetaminophen 325 Mg Tab) 650 mg PO Q4H PRN PRN Reason: Pain or Fever Stop: 04/17/25 19:55 Last Admin: 03/18/25 20:01 Dose: 650 mg Albuterol (Albuterol Hfa 8 Gm Inhaler) 2 puffs INH Q4H PRN PRN Reason: Wheezing Stop: 04/15/25 23:56 Aspirin (Aspirin 81 Mg Ectab) 81 mg PO [facility] Stop: 04/17/25 08:59 Last Admin: 03/19/25 08:20 Dose: 81 mg Atorvastatin Calcium (Atorvastatin 40 Mg Tab) 80 mg PO [facility] Stop: 04/17/25 08:59 Last Admin: 03/19/25 08:20 Dose: 80 mg Cetirizine HCl (Cetirizine Hcl 10 Mg Tablet) 10 mg PO [facility] Stop: 04/17/25 08:59 Last Admin: 03/19/25 08:20 Dose: 10 mg Clopidogrel Bisulfate (Clopidogrel Bisulfate 75 Mg Tab) 75 mg PO [facility] Stop: 04/17/25 08:59 Last Admin: 03/19/25 08:21 Dose: 75 mg Fluticasone Propionate (Fluticasone Propionate Na Spr 16 Gm Btl) [address] [facility] Stop: 04/15/25 23:56 Last Admin: 03/18/25 19:48 Dose: 1 sprays Hydromorphone HCl (Hydromorphone Inj 0.5 Mg/0.5 Ml Syr) 0.5 mg IV Q6H PRN PRN Reason: Pain Stop: 03/30/25 19:13 Promethazine HCl (Phenergan) 12.5 mg in 50.5 mls @ 202 mls/hr IV Q6H PRN PRN Reason: Nausea And Vomiting Stop: 04/15/25 19:13 Last Infusion: 03/16/25 23:56 Dose: Infused Isosorbide Mononitrate (Isosorbide [place] Extended Rel 30 Mg Tabcr) 30 mg PO [facility] Stop: 04/16/25 08:59 Last Admin: 03/19/25 08:19 Dose: 30 mg Lisinopril (Lisinopril 10 Mg Tab) 10 mg PO [facility] Stop: 04/16/25 08:59 Last Admin: 03/19/25 08:19 Dose: 10 mg Metoprolol Succinate (Metoprolol Succ 25mg Ext Rel Tab) 25 mg PO [facility] Stop: 04/16/25 08:59 Last Admin: 03/19/25 08:19 Dose: 25 mg Montelukast Sodium (Montelukast Sodium 10 Mg Tablet) 10 mg PO QAM [facility] Stop: 04/16/25 08:59 Last Admin: 03/19/25 08:19 Dose: 10 mg Pantoprazole Sodium (Pantoprazole 40 Mg Tab) [facility] Stop: 04/17/25 08:59 Last Admin: 03/19/25 08:21 Dose: 40 mg Phenol (Chloraseptic (Phenol) 1.4% Soln 180 Ml Btl) 1 sprays MT Q1H PRN PRN Reason: Sore Throat Stop: 04/15/25 22:49 Last Admin: 03/17/25 20:49 Dose: 1 sprays Triamcinolone Acetonide (Triamcinolone Acet 0.1% Cr 15 Gm Tube) 1 appln TOP DAILY [facility] Stop: 04/16/25 08:59 Last Admin: 03/19/25 08:21 Dose: 1 appln
[2025-03-19 11:15] VITALS: BP 130/80; PULSE 99; TEMP 98.1; O2SAT 98
--- NOTE | 2025-03-19 14:35 | Discharge Summary ---
Date of Service March 19, 2025 Admission HPI Per Admitting Provider She is a 55-year-old female significant past medical history of mild asthma, Loepz's esophagitis, CAD, IBS, seasonal allergies, and obstructive sleep apnea apparently underwent laparoscopic umbilical hernia repair by Dr. Holman on Tuesday. She did not have any bowel movement for the last 5 days and was feeling little bloated. She had a bowel movement yesterday around 7 PM and after that she has had more bowel movement and which seems to be liquid now. She started to have abdominal pain which has been getting worse associated with nausea and she was feeling chilly and sweaty with the pain but did not have any fever. She has had nausea and vomiting quite a few times in the emergency room. She feels her abdomen little bloated but denies any significant distention and so far she has been using abdominal binder following the surgery/laparoscopic procedure. Denies any chest pain, any shortness of breath or palpitation. And no problem with the urine and does not have any swelling of the legs. CT of the abdomen in the ER showed intestinal obstruction and from that point she was referred for admission and surgical evaluation. Admission Exam Per Admitting Provider Physical Exam: Lying in bed with acute distress due to abdominal discomfort and pain and looks very anxious Constitutional: + ill appearing and average body habitus Eyes: PERRL, conjunctivae normal, anicteric sclerae ENMT: external ear and nose normal, oropharynx normal Neck: trachea midline, no thyromegaly Respiratory: no respiratory distress Auscultation: lungs clear to auscultation bilaterally Cardiovascular: Rate/Rhythm: regular rate and regular rhythm; not tachycardic Extremities: no edema Gastrointestinal (Abdomen): Inspection/Auscultation: abdomen not distended and + abnormal bowel sounds (Sluggish) Percussion/Palpation: + abdomen tender and abdomen soft Musculoskeletal: No acute arthritis involving any of the joint Neurologic: normal touch/pain/proprioception and moves all extremities; no focal motor deficits Psychiatric: A+Ox3, euthymic affect Lymphatic: no cervical or axillary lymphadenopathy Principal Diagnosis SBO,CAD,Controlled asthma Discharge Exam Lying in bed with acute distress due to abdominal discomfort and pain and looks very anxious Constitutional + ill appearing and average body habitus Eyes PERRL, conjunctivae normal, anicteric sclerae ENMT external ear and nose normal, oropharynx normal Neck trachea midline, no thyromegaly Respiratory no respiratory distress Auscultation: lungs clear to auscultation bilaterally Cardiovascular Rate/Rhythm: regular rate and regular rhythm; not tachycardic Extremities: no edema Gastrointestinal (Abdomen) Inspection/Auscultation: abdomen not distended and + abnormal bowel sounds (Sluggish) Percussion/Palpation: abdomen soft; abdomen nontender Neurologic normal touch/pain/proprioception and moves all extremities; no focal motor deficits Psychiatric A+Ox3, euthymic affect Lymphatic no cervical or axillary lymphadenopathy Discharge Data Allergies Allergy/AdvReac Type Severity Reaction Status Date / Time No Known Allergies Allergy Verified 03/11/25 05:39 Consultations 03/16/25 18:25 Consult General Surgery Stat ED Decision to Admit Stat Ordered Studies 03/16/25 16:23 CT angio chest PE protocol Stat 03/16/25 16:28 CT abd pelvis IV con only Stat Hospital Course (1) SBO (small bowel obstruction): Recent laparoscopic repair of umbilical hernia with mesh placement on Tuesday that is 03/11/2025 Has been complaining of abdominal pain with nausea vomiting since this morning with some distention Bowel is moving seems to be liquidy after about [address] of the abdomen pelvis did show small bowel obstruction with point of transition at the ileocecal junction and no evidence of bowel ischemia Started with intravenous fluid, antiemetic medications and pain medications She will be n.p.o. for now and may take medications with sips of water from tomorrow morning if condition does not deteriorate Surgery will see her for any further recommendation If vomiting continues she will need to put an NG tube Status post NG tube placement last night and it has been draining very minimal amount Clinically much better with decreasing abdominal pain and no distention Has had bowel movement and will likely to start clears orally Abdominal symptoms has resolved except minimal discomfort and bowel is moved Will start clears and will advance diet accordingly from tomorrow Has been feeling much better and tolerating a low fiber diet with minimal abdominal discomfort and has been having bowel movement with loose stools She will be discharged home this afternoon and will continue low fiber diet for a week as per the instructions Will see PCP as an outpatient also surgery follow-up as an outpatient (2) CAD (coronary artery disease): Has been taking Plavix and aspirin including other medications for the heart Will hold aspirin and Plavix for now in case she will go for any procedure Will give her Nitropaste half inch every 6 hourly as long as she cannot take iso sorbide No cardiac symptoms and does not have any shortness of breath or palpitation All of her medications have been restarted (3) History of Lopez's esophagus: Continue PPI (4) Sleep apnea: She can use CPAP (5) History of asthma: Her asthma is controlled with her no wheezing or shortness of breath Will continue her usual inhalers Well-controlled (6) History of hypertension: Blood pressure seems to be in the upper side at 147/ She did not take her medications this morning 102 Will give Lopressor 5 mg IV and will continue with metoprolol from tomorrow morning Lisinopril will be continued for tomorrow morning (7) Hx of hyperlipidemia: Will hold statin now (8) Incisional hernia: Status post laparoscopic repair of umbilical/Incisional hernia on Tuesday No significant lump on examination of the abdomen DVT prophylaxis Subcu heparin CODE STATUS Full Total Time Total Time Spent Total Time Spent (In Minutes): 35 Minutes Discharge Plan Discharge Items Patient Disposition: Home - Self-Care Reason For Visit: SBO Discharge Diagnosis: SBO,CAD,Controlled asthma Condition on Discharge: Good Activity: Resume your previous activity Non-emergency contact: Primary Care Provider Call non-emergency contact if: you have any medication questions and your symptoms worsen Follow-up/Referrals: Guadalupe Adams PA-C [Primary Care Provider] - (Date & Time 03/22/2025 10:00 AM Provider: Stewart Wolfe PA-C [facility] [facility] ) Diet: Low Fiber Addtl Attending Provider Instructions: Please take precaution to avoid falls Continue with low fiber diet as advised Drink more fluid Please keep appointments with the healthcare providers Pending Studies at Discharge: No Stand-Alone Forms: My [employer], Smoking Cessation Medications and DC Order Prescriptions: Continued LACTOBACILLUS (PROBIOTIC) 1 CAP capsule 1 tab PO QAM Qty: 0 lisinopril 10 mg Tablet 10 mg PO QAM montelukast [Singulair] 10 mg Tablet 10 mg PO QAM albuterol sulfate 90 mcg/actuation Hfa Aerosol Inhaler 2 puff INHALATION Q4H PRN (Reason: Wheezing) cyclobenzaprine 10 mg Tablet 10 mg PO HS PRN (Reason: muscle spasms) cetirizine [Zyrtec] 10 mg Tablet 10 mg PO QAM ferrous sulfate 325 mg (65 mg iron) Tablet 325 mg PO UD Rx Instructions: mon/wed/fri, once daily metoprolol succinate 25 mg Tablet Extended Release 24 Hr 25 mg PO QAM atorvastatin 80 mg tablet 80 mg PO QAM ascorbic acid (vitamin C) [Vitamin C] 1,000 mg Tablet 1 g PO QAM esomeprazole magnesium [Nexium] 40 mg Capsule,Delayed Release(Dr/Ec) 40 mg PO QAM Arnuity Ellipta 200 mcg/actuation Blister With Device 1 inh INHALATION QAM Linzess 72 mcg Capsule 144 mcg PO QAM aspirin 81 mg Capsule 81 mg PO QAM isosorbide mononitrate 30 mg tablet extended release 24 hr 30 mg PO QAM clopidogrel 75 mg tablet 75 mg PO QAM fluticasone propionate 50 mcg/actuation [place],Suspension 1 spray INTRANASAL HS Rx Instructions: administer into each nostril polyethylene glycol 3350 [Miralax] 17 gram Powder In Packet 17 g PO DAILY oxycodone-acetaminophen [Percocet] 5-325 mg tablet 1 tab PO Q6H PRN (Reason: pain) Qty: 14 0RF triamcinolone acetonide 0.1 % cream 1 applic TOPICAL DAILY Rx Instructions: PEA SIZED AMOUNT TOPICALLY TO VAGINAL AERA omega-3 fatty acids 1,000 mg Capsule 2,000 mg PO QAM Discharge Orders: Discharge Order (Routine); Ordered 03/19/25 Ordered By: Adelita Woodson/Other Patient Handouts: Low-Fiber Diet Admission Data Admit Date/Time: 03/16/25 22:07 Attending Provider: Adelita Roberts Admit Provider: Adelita Roberts Primary Care Provider: Guadalupe Adams Other Providers: Robin Tee; Adelita Roberts Other Interventions: Discharge Summary Assessment (RN) Last Done: 03/19/25 13:22
--- NOTE | 2025-03-20 08:48 | Coding Query ---
CODING QUERY To promote full compliance with coding requirements relating to patient care, provider participation is requested in all cases of test consultant uncertainty. Please assist us with the question(s) below: Coding Question(s): Patient admitted with postprocedure intestinal obstruction. 03/19 Surgery progress note documented postoperative ileus. Please check below the phrase that describes the ileus. Thank you . Neno Ryder [facility] Physician's Response(s): ___X The patient had a postoperative ileus, present on admission The patient did not have a postoperative ileus. Other: please document: Principal Diagnosis: "that condition established after study, to be chiefly responsible for occasioning the admission of the patient to the hospital for care." Co-Existing Principal Diagnosis: "when two or more diagnoses equally meet the criteria for principal diagnosis as determined by the circumstances of admission, diagnostic work up, and/or therapy provided, and the Alphabetic Index, Tabular List, or another coding guideline does not provide sequencing direction, any one of the diagnoses may be sequenced first." "When the physician has documented what appears to be a current diagnosis in the body of the record, but has not included the diagnosis in the final diagnostic statement, the physician should be asked whether the diagnosis should be added." (Source Coding Clinic 2 QTR90. p3-4) YENI
== END 2025-03-19 14:14 | disposition home or self-care (01) | DRG 394 ==
LOC: ED 16:16 → 2W 22:07